=== PATIENT | male | born 1970 ===

== ENCOUNTER 2019-08-23 06:21 | Inpatient (IN) | payer OTHER ==
[2019-08-23] MEDS ORDERED: ALBUTEROL HFA INHALER INHALATION STA (06:43)
[2019-08-23] MEDS ORDERED: ACETAMINOPHEN TAB 500 MG TAB PO STA (06:43)
[2019-08-23] MEDS ORDERED: SODIUM CHLORIDE 0.9% 1,000 ML IV ONE (06:46)
--- NOTE | 2019-08-23 06:48 | ED ---
SOB HPI - General Stated Complaint: SOB Time Seen by Provider: 08/23/19 06:25 Source: RN notes reviewed, old records reviewed - History of Present Illness Initial Comments: Patient is a 48-year-old male, currently in [facility]. Patient speaks only English. He presents today with complaints of 2 weeks of cough shortness of breath and chest pain. He reports the emergency Department with fever 102. Patient is currently residing on the cold floor after he started to have symptoms. Also complains of not eating for the past 8 days and has had episodes of diarrhea and vomiting. Patient reports that he does have a history of thoracic aortic aneurysm. Majority of the history was taken by nurse and with translating service. - Related Data Allergies Allergy/AdvReac Type Severity Reaction Status Date / Time No Known Allergies Allergy Verified 08/23/19 07:47 Review of Systems ROS Statement: Those systems with pertinent positive or pertinent negative responses have been documented in the HPI. ROS Other: All systems not noted in ROS Statement are negative. General Exam - General Exam Comments Initial Comments: 48-year-old male. Diaphoretic. Patient appears in moderate discomfort. His oxygen was 91-90% on room air, placed on 3 L of oxygen. Head exam: Present: atraumatic, normocephalic, normal inspection Eye exam: Present: normal appearance, PERRL, EOMI. Absent: scleral icterus, conjunctival injection, periorbital swelling ENT exam: Present: normal exam Neck exam: Present: normal inspection. Absent: tenderness, meningismus, lymphadenopathy Respiratory exam: Present: decreased breath sounds, other (hypoxia without supllemental oxygen ). Absent: normal lung sounds bilaterally, respiratory distress, wheezes, rales, rhonchi, stridor Cardiovascular Exam: Absent: regular rate GI/Abdominal exam: Present: soft, tenderness (LUQ and RUQ tenderness), normal bowel sounds. Absent: distended, guarding, rebound, rigid Back exam: Present: normal inspection Neurological exam: Present: alert, oriented X3, CN II-XII intact Psychiatric exam: Present: normal affect, normal mood Skin exam: Present: warm, dry, intact, normal color. Absent: rash Course Vital Signs 08/23/19 08/23/19 08/23/19 06:30 06:45 07:15 Temperature 1003 F H 100.3 F H Pulse Rate 107 H 89 Pulse Rate [ 104 H Apical] Respiratory 26 H 20 Rate Blood Pressure 120/82 110/73 O2 Sat by Pulse 91 L 98 Oximetry Medical Decision Making - Medical Decision Making Patient is a 48-year-old male, currently in [facility], presents with 2 weeks of fever shortness of breath diarrhea. He has been on the [facility] that a unit at the [facility] for the past week. Resent today with a worsening fever, worsening shortness of rest, and diaphoresis. Patient did have Tylenol prior to arriving to the emergency department. He still febrile in 100.3 temperature. Patient appeared diaphoretic and generally unwell. Having tachypnea. Patient was placed on oxygen after his oxygen saturations dipped to upper 80s without oxygen on ambulation. Patient was placed on 3 L at this time. He is complaining of some general aches and complains of some right upper quadrant pain as well. At this time patient's labwork was reviewed. He is positive for Covid, d-dimer is negative. LDH is elevated 720. Patient is given albuterol treatment. IV fluids. With Patient requiring supplemental oxygen, in general malaise Artie the Patient at this time. Discussed the case with Dr. Chirinos discussed the case with Dr. Thomas. - Lab Data Result diagrams: 08/23/19 06:54 08/23/19 06:54 Lab Results 08/23/19 08/23/19 08/23/19 Range/Units 06:54 06:54 06:54 WBC 5.8 (3.8-10.6) k/uL RBC 5.15 (4.30-5.90) m/uL Hgb 14.0 (13.0-17.5) gm/dL Hct 42.8 (39.0-53.0) % MCV 83.0 (80.0-100.0) fL MCH 27.2 (25.0-35.0) pg MCHC 32.8 (31.0-37.0) g/dL RDW 12.6 (11.5-15.5) % Plt Count 128 L (150-450) k/uL Neutrophils % 75 % Lymphocytes % 13 % Monocytes % 9 % Eosinophils % 0 % Basophils % 1 % Neutrophils # 4.3 (1.3-7.7) k/uL Lymphocytes # 0.8 L (1.0-4.8) k/uL Monocytes # 0.5 (0-1.0) k/uL Eosinophils # 0.0 (0-0.7) k/uL Basophils # 0.1 (0-0.2) k/uL PT 11.9 (9.0-12.0) sec INR 1.2 H (<1.2) APTT 26.1 (22.0-30.0) sec D-Dimer 0.34 (<0.60) mg/L FEU Sodium 133 L (137-145) mmol/L Potassium 3.7 (3.5-5.1) mmol/L Chloride 99 (98-107) mmol/L Carbon Dioxide 24 (22-30) mmol/L Anion Gap 10 mmol/L BUN 15 (9-20) mg/dL Creatinine 0.87 (0.66-1.25) mg/dL Est GFR (CKD-EPI)AfAm >90 (>60 ml/min/1.73 sqM) Est GFR (CKD-EPI)NonAf >90 (>60 ml/min/1.73 sqM) Glucose 146 H (74-99) mg/dL Plasma Lactic Acid Basim (0.7-2.0) mmol/L Calcium 8.1 L (8.4-10.2) mg/dL Magnesium 1.9 (1.6-2.3) mg/dL Total Bilirubin 0.7 (0.2-1.3) mg/dL AST 36 (17-59) U/L ALT 30 (4-49) U/L Alkaline Phosphatase 44 (38-126) U/L Lactate Dehydrogenase 748 H (313-618) U/L Troponin I (0.000-0.034) ng/mL C-Reactive Protein 79.8 H (<10.0) mg/L Total Protein 6.8 (6.3-8.2) g/dL Albumin 3.8 (3.5-5.0) g/dL Coronavirus (PCR) (Not Detectd) 08/23/19 08/23/19 08/23/19 Range/Units 06:54 06:54 06:54 WBC (3.8-10.6) k/uL RBC (4.30-5.90) m/uL Hgb (13.0-17.5) gm/dL Hct (39.0-53.0) % MCV (80.0-100.0) fL MCH (25.0-35.0) pg MCHC (31.0-37.0) g/dL RDW (11.5-15.5) % Plt Count (150-450) k/uL Neutrophils % % Lymphocytes % % Monocytes % % Eosinophils % % Basophils % % Neutrophils # (1.3-7.7) k/uL Lymphocytes # (1.0-4.8) k/uL Monocytes # (0-1.0) k/uL Eosinophils # (0-0.7) k/uL Basophils # (0-0.2) k/uL PT (9.0-12.0) sec INR (<1.2) APTT (22.0-30.0) sec D-Dimer (<0.60) mg/L FEU Sodium (137-145) mmol/L Potassium (3.5-5.1) mmol/L Chloride (98-107) mmol/L Carbon Dioxide (22-30) mmol/L Anion Gap mmol/L BUN (9-20) mg/dL Creatinine (0.66-1.25) mg/dL Est GFR (CKD-EPI)AfAm (>60 ml/min/1.73 sqM) Est GFR (CKD-EPI)NonAf (>60 ml/min/1.73 sqM) Glucose (74-99) mg/dL Plasma Lactic Acid Basim 1.2 (0.7-2.0) mmol/L Calcium (8.4-10.2) mg/dL Magnesium (1.6-2.3) mg/dL Total Bilirubin (0.2-1.3) mg/dL AST (17-59) U/L ALT (4-49) U/L Alkaline Phosphatase (38-126) U/L Lactate Dehydrogenase (313-618) U/L Troponin I 0.013 (0.000-0.034) ng/mL C-Reactive Protein (<10.0) mg/L Total Protein (6.3-8.2) g/dL Albumin (3.5-5.0) g/dL Coronavirus (PCR) Detected A (Not Detectd) 08/23/19 07:19 EKG performed at 6:48 AM sinus tachycardia, septal infarct age undetermined. Ventricular rate of 104 beats were minute. Verbal 154 ms. She sabianism is 88 ms. QT QTc is 346/454 ms. - Radiology Data Radiology results: report reviewed Patchy bilateral airspace disease. Borderline cardiomegaly. On exclude small bilateral effusion. Disposition Clinical Impression: COVID-19, Hypoxia, English speaking patient, Weakness Disposition: ADMITTED IP TO THIS HOSP Condition: Stable Is patient prescribed a controlled substance at d/c from ED?: No Referrals: None,Stated [Primary Care Provider] - 1-2 days Time of Disposition: 08:44
[2019-08-23] MEDS ORDERED: SODIUM CHLORIDE 0.9% 1,000 ML IV SCH (07:00)
[2019-08-23 07:09] LABS: Basophils # (A) 0.1 k/uL (0-0.2); Basophils % (A) 1 %; Eosinophils % (A) 0 %; HCT 42.8 % (39.0-53.0); Lymphocytes # (A) 0.8 k/uL (1.0-4.8); Lymphocytes % (A) 13 %; MCH 27.2 pg (25.0-35.0); MCHC 32.8 g/dL (31.0-37.0); Mean Platelet Volume 10.2; Monocytes # (A) 0.5 k/uL (0-1.0); Monocytes % (A) 9 %; Neutrophils # (A) 4.3 k/uL (1.3-7.7); Neutrophils % (A) 75 %; Platelet Count 128 k/uL (150-450); RBC 5.15 m/uL (4.30-5.90); RDW 12.6 % (11.5-15.5); WBC 5.8 k/uL (3.8-10.6)
[2019-08-23 07:22] LABS: ALT 30 U/L (4-49); African American GFR (CKD) >90 (>60 ml/min/1.73 sqM); Albumin 3.8 g/dL (3.5-5.0); Anion Gap 10 mmol/L; Blood Urea Nitrogen 15 mg/dL (9-20); C Reactive Protein 79.8 mg/L (<10.0); Calcium 8.1 mg/dL (8.4-10.2); Carbon Dioxide 24 mmol/L (22-30); Chloride 99 mmol/L (98-107); Glucose 146 mg/dL (74-99); Non-African American GFR(CKD) >90 (>60 ml/min/1.73 sqM); Sodium 133 mmol/L (137-145); Total Bilirubin 0.7 mg/dL (0.2-1.3); Total Protein 6.8 g/dL (6.3-8.2)
[2019-08-23 07:23] LABS: D-Dimer 0.34 mg/L FEU (<0.60); INR 1.2 (<1.2)
[2019-08-23 07:24] LABS: Partial Thromboplastin Time 26.1 sec (22.0-30.0); Prothrombin Time 11.9 sec (9.0-12.0)
[2019-08-23 07:33] LABS: AST 36 U/L (17-59); Alkaline Phosphatase 44 U/L (38-126); Magnesium 1.9 mg/dL (1.6-2.3); Potassium 3.7 mmol/L (3.5-5.1)
[2019-08-23 07:34] LABS: LDH 748 U/L (313-618)
--- NOTE | 2019-08-23 07:38 | XR ---
EXAMINATION TYPE: XR chest 1V portable DATE OF EXAM: 08/23/2019 HISTORY: Suspected COVID-19 pneumonia. REFERENCE: NONE. FINDINGS: Heart size upper limits of normal. There is patchy, bilateral airspace disease. Both CP ang les are blunted and I cannot exclude small effusions. IMPRESSION: 1. PATCHY, BILATERAL AIRSPACE DISEASE. 2. BORDERLINE CARDIOMEGALY. 3. I COULD NOT EXCLUDE SMALL, BILATERAL EFFUSIONS.
[2019-08-23] MEDS ORDERED: NALOXONE 0.4 MG/ML 1 ML VIAL IV PRN (08:45)
[2019-08-23] MEDS ORDERED: ONDANSETRON 4 MG/2 ML VIAL IVP PRN (08:45)
[2019-08-23 11:53] LABS: Glucose,Whole Blood 93 mg/dL (75-99)
--- NOTE | 2019-08-23 14:47 | P.HPIM ---
History of Present Illness 48-year-old male, currently in [facility]. Patient speaks only Setswana. He presents today with complaints of 2 weeks of cough shortness of breath and chest pain. He reports the emergency Department with fever 102. Leland gómez is currently residing on the cold floor after he started to have symptoms. Also complains of not eating for the past 8 days and has had episodes of diarrhea and vomiting. Patient reports that he does have a history of thoracic aortic aneurysm. Patient barely speaks Belizean. Patient has hyponatremia high- grade fevers increased LDH, normal d-dimer mild lymphopenia. Patient is covid 19 positive Review of Systems REVIEW OF SYSTEMS: CONSTITUTIONAL: No fever, no malaise, no fatigue. HEENT: No recent visual problems or hearing problems. Denied any sore throat. CARDIOVASCULAR: No chest pain, orthopnea, PND, no palpitations, no syncope. PULMONARY: As mentioned in HPI GASTROINTESTINAL: No diarrhea, no nausea, no vomiting, no abdominal pain. NEUROLOGICAL: No headaches, no weakness, no numbness. HEMATOLOGICAL: Denies any bleeding or petechiae. GENITOURINARY: Denies any burning micturition, frequency, or urgency. MUSCULOSKELETAL/RHEUMATOLOGICAL: Denies any joint pain, swelling, or any muscle pain. ENDOCRINE: Denies any polyuria or polydipsia. The rest of the 14-point review of systems is negative. Past Medical History Past Medical History: Diabetes Mellitus, Liver Disease Additional Past Medical History / Comment(s): aortic aneurysm, History of Any Multi-Drug Resistant Organisms: None Reported Past Surgical History: No Surgical Hx Reported Past Psychological History: Unable to Obtain Smoking Status: Never smoker Past Alcohol Use History: None Reported Past Drug Use History: Cocaine - Past Family History Father Family Medical History: Respiratory Disorder Medications and Allergies Allergies Allergy/AdvReac Type Severity Reaction Status Date / Time No Known Allergies Allergy Verified 08/23/19 07:47 Physical Exam Vitals: Vital Signs Temp Pulse Pulse Pulse Resp BP BP 08/23/19 12:10 08/23/19 09:59 98.1 F 94 14 122/79 08/23/19 09:10 91 20 112/71 08/23/19 08:00 08/23/19 07:15 100.3 F H 89 20 110/73 08/23/19 06:45 104 H 08/23/19 06:30 1003 F H 107 H 26 H 120/82 Pulse Ox 08/23/19 12:10 96 08/23/19 09:59 96 08/23/19 09:10 97 08/23/19 08:00 92 L 08/23/19 07:15 98 08/23/19 06:45 08/23/19 06:30 91 L Intake and Output 08/22/19 08/23/19 08/23/19 22:59 06:59 14:59 Intake Total 240 Balance 240 Intake: Oral 240 Other: Weight 145.15 kg 145.15 kg PHYSICAL EXAMINATION: GENERAL: The patient is alert and oriented x3, not in any acute distress. Well developed, well nourished. HEENT: Pupils are round and equally reacting to light. EOMI. No scleral icterus. No conjunctival pallor. Normocephalic, atraumatic. No pharyngeal erythema. No thyromegaly. CARDIOVASCULAR: S1 and S2 present. No murmurs, rubs, or gallops. PULMONARY: Chest is clear to auscultation, no wheezing or crackles. ABDOMEN: Soft, nontender, nondistended, normoactive bowel sounds. No palpable organomegaly. MUSCULOSKELETAL: No joint swelling or deformity. EXTREMITIES: No cyanosis, clubbing, or pedal edema. NEUROLOGICAL: Gross neurological examination did not reveal any focal deficits. SKIN: No rashes. Note: Because of COVID 19 isolation, some of the history and physical exam findings or indirect and obtained from nursing staff, and other physician examinations to avoid unnecessary contact with the patient. Results CBC & Chem 7: 08/23/19 06:54 08/23/19 06:54 Labs: Abnormal Lab Results - Last 24 Hours (Table) 08/23/19 08/23/19 08/23/19 Range/Units 06:54 06:54 06:54 Plt Count 128 L (150-450) k/uL Lymphocytes # 0.8 L (1.0-4.8) k/uL INR 1.2 H (<1.2) Sodium 133 L (137-145) mmol/L Glucose 146 H (74-99) mg/dL Calcium 8.1 L (8.4-10.2) mg/dL Lactate Dehydrogenase 748 H (313-618) U/L C-Reactive Protein 79.8 H (<10.0) mg/L Coronavirus (PCR) (Not Detectd) 08/23/19 Range/Units 06:54 Plt Count (150-450) k/uL Lymphocytes # (1.0-4.8) k/uL INR (<1.2) Sodium (137-145) mmol/L Glucose (74-99) mg/dL Calcium (8.4-10.2) mg/dL Lactate Dehydrogenase (313-618) U/L C-Reactive Protein (<10.0) mg/L Coronavirus (PCR) Detected A (Not Detectd) Thrombosis Risk Factor Assmnt - Choose All That Apply Any of the Below Risk Factors Present?: Yes Each Factor Represents 1 point: Age 41-60 years, Obesity (BMI >25), Serious lung disease incl. pneumonia (< 1month) Thrombosis Risk Factor Assessment Total Risk Factor Score: 3 Thrombosis Risk Factor Assessment Level: Moderate Risk Assessment and Plan Plan: Acute hypoxic respiratory failure: Seconded to cocaine 19 infection. Patient will be can you done supportive care if needed patient will be started on steroids patient will not be started on any hydroxychloroquine at this time. -Type 2 diabetes mellitus. Sliding scale insulin for now -Obesity
[2019-08-23 17:11] LABS: Glucose,Whole Blood 147 mg/dL (75-99)
[2019-08-23] MEDS: HYDROXYCHLOROQUINE SULFATE 200 MG TAB PO SCH (17:45)
[2019-08-23] MEDS: INSULIN ASPART (NovoLOG) 100 UNIT/ML VIAL SQ SCH ×2 (17:45→22:54)
[2019-08-23] MEDS ORDERED: HYDROXYCHLOROQUINE SULFATE 200 MG TAB PO SCH (21:00)
--- NOTE | 2019-08-23 22:21 | P.CONS ---
History of Present Illness - Reason for Consult Consult date: 08/23/19 COVID19 pneumonia Requesting physician: Raquel Thomas - Chief Complaint Fever and cough x 1 week - History of Present Illness Patient is a 48-year-old male resident of [facility] who speaks only Maltese has been brought to my [facility] this morning with 2 weeks of cough shortness of breath and chest pain patient noticed to have a fever of 102 F apparently the patient has been residing in the [facility] floor after his symptoms started patient not been eating for 8 days and this episode of vomiting and diarrhea with the symptoms so the patient was evaluated by the ER physician patient presentation the hospital did have a fever of 100.3 F pat ient has a normal white count and did have the leukopenia levels have been normal LDH was elevated CRP elevated davis PCR came back positive patient had did have a chest x-ray shows patchy bilateral airspace disease patient was admitted for respite was consulted later for further management of his underlying COVID-19 infection most information has been obtained from review the chart as the patient was unable to provide any history because of language barrier and no saw maker was available. Review of Systems Positive point has been mentioned in HPI complete review could not be obtained because of underlying language barrier Past Medical History Past Medical History: Diabetes Mellitus, Liver Disease Additional Past Medical History / Comment(s): aortic aneurysm, History of Any Multi-Drug Resistant Organisms: None Reported Past Surgical History: No Surgical Hx Reported Past Psychological History: Unable to Obtain Smoking Status: Never smoker Past Alcohol Use History: None Reported Past Drug Use History: Cocaine - Past Family History Father Family Medical History: Respiratory Disorder Medications and Allergies Home Medications Medication Instructions Recorded Confirmed Type Acetaminophen Tab [Tylenol] 975 mg PO BID PRN 08/23/19 08/23/19 History Aspirin EC [Ecotrin Low Dose] 81 mg PO DAILY 08/23/19 08/23/19 History Atorvastatin [Lipitor] 20 mg PO HS 08/23/19 08/23/19 History Ensure 240 ml PO BID 08/23/19 08/23/19 History Insulin Regular [HumuLIN R] See Protocol SQ ACHS 08/23/19 08/23/19 History Lisinopril [Zestril] 10 mg PO DAILY 08/23/19 08/23/19 History Omeprazole [PriLOSEC] 20 mg PO DAILY PRN 08/23/19 08/23/19 History Ondansetron [Zofran] 4 mg PO BID PRN 08/23/19 08/23/19 History glipiZIDE [Glucotrol] 5 mg PO DAILY 08/23/19 08/23/19 History metFORMIN HCL 1,000 mg PO BID 08/23/19 08/23/19 History Allergies Allergy/AdvReac Type Severity Reaction Status Date / Time No Known Allergies Allergy Verified 08/23/19 15:46 Physical Exam Vitals: Vital Signs Temp Pulse Pulse Pulse Resp BP BP 08/23/19 15:57 99.6 F 101 H 22 116/74 08/23/19 12:10 08/23/19 09:59 98.1 F 94 14 122/79 08/23/19 09:10 91 20 112/71 08/23/19 08:00 08/23/19 07:15 100.3 F H 89 20 110/73 08/23/19 06:45 104 H 08/23/19 06:30 1003 F H 107 H 26 H 120/82 Pulse Ox 08/23/19 15:57 95 08/23/19 12:10 96 08/23/19 09:59 96 08/23/19 09:10 97 08/23/19 08:00 92 L 08/23/19 07:15 98 08/23/19 06:45 08/23/19 06:30 91 L Intake and Output 08/23/19 08/23/19 08/23/19 06:59 14:59 22:59 Intake Total 240 480 Balance 240 480 Intake: Oral 240 480 Other: # Voids 0 Weight 145.15 kg 145.15 kg GENERAL DESCRIPTION: Middle-aged male lying in bed, no distress. No tachypnea or accessory muscle of respiration use. HEENT: Shows Pallor , no scleral icterus. Oral mucous membrane is dry. NECK: Trachea central, no thyromegaly. LUNGS: Unlabored breathing. Coarse breath sound at the base. No wheeze or crackle. HEART: S1, S2, regular rate and rhythm. ABDOMEN: Soft, no tenderness , guarding or rigidity EXTREMITIES: No edema of feet. SKIN: No rash, no masses palpable. NEUROLOGICAL: The patient is awake, alert, orientation could not be determined because of language barrier Results CBC & Chem 7: 08/23/19 06:54 08/23/19 06:54 Labs: Abnormal Lab Results - Last 24 Hours (Table) 08/23/19 08/23/19 08/23/19 Range/Units 06:54 06:54 06:54 Plt Count 128 L (150-450) k/uL Lymphocytes # 0.8 L (1.0-4.8) k/uL INR 1.2 H (<1.2) Sodium 133 L (137-145) mmol/L Glucose 146 H (74-99) mg/dL POC Glucose (mg/dL) (75-99) mg/dL Calcium 8.1 L (8.4-10.2) mg/dL Lactate Dehydrogenase 748 H (313-618) U/L C-Reactive Protein 79.8 H (<10.0) mg/L Coronavirus (PCR) (Not Detectd) 08/23/19 08/23/19 Range/Units 06:54 17:09 Plt Count (150-450) k/uL Lymphocytes # (1.0-4.8) k/uL INR (<1.2) Sodium (137-145) mmol/L Glucose (74-99) mg/dL POC Glucose (mg/dL) 147 H (75-99) mg/dL Calcium (8.4-10.2) mg/dL Lactate Dehydrogenase (313-618) U/L C-Reactive Protein (<10.0) mg/L Coronavirus (PCR) Detected A (Not Detectd) Assessment and Plan Assessment: patient presented to hospital with fever congested cough and this patient who is currently incarcerated at [facility] and possibly exposed to other elements with the COVID-19 in this patient who did have typical findings of a COVID-19 infection with lymphopenia elevated LDH bilateral interstitial infiltrate (1) Pneumonia due to COVID-19 virus Current Visit: Yes Status: Acute Code(s): U07.1 - COVID-19; J12.89 - OTHER VIRAL PNEUMONIA SNOMED Code(s): 221450600 Plan: 1 we will start the patient on Plaquenil-400 mg twice daily x2 doses followed by 200 g twice daily x8 doses 2- Patient restarted on steroids 1 mg/kg as the patient is hypoxic requiring supplemental oxygen 3-started on Lovenox to prevent any thrombotic complication, with COVID-19 infection 4-oral zinc and vitamin C We will follow on clinical condition and cultures to further adjust medication if needed Thank you for this consultation we will follow the patient along with you Time with Patient: Greater than 30
[2019-08-23 22:43] LABS: Glucose,Whole Blood 139 mg/dL (75-99)
[2019-08-23] MEDS: ENOXAPARIN 40 MG/0.4 ML SYRINGE SQ SCH (22:54)
[2019-08-23] MEDS: ACETAMINOPHEN TAB 325 MG TAB PO PRN (22:55)
[2019-08-23] MEDS: predniSONE 20 MG TAB PO SCH (22:55)
[2019-08-24 06:59] LABS: Glucose,Whole Blood 248 mg/dL (75-99)
[2019-08-24] MEDS: predniSONE 20 MG TAB PO SCH ×2 (07:31→22:05)
[2019-08-24] MEDS: HYDROXYCHLOROQUINE SULFATE 200 MG TAB PO SCH ×2 (07:31→22:04)
[2019-08-24] MEDS: ENOXAPARIN 40 MG/0.4 ML SYRINGE SQ SCH ×2 (07:31→22:04)
[2019-08-24] MEDS: INSULIN ASPART (NovoLOG) 100 UNIT/ML VIAL SQ SCH ×4 (07:32→22:05)
[2019-08-24 11:19] LABS: Ferritin 1114.5 ng/mL (22.0-322.0)
[2019-08-24 11:30] LABS: Glucose,Whole Blood 249 mg/dL (75-99)
--- NOTE | 2019-08-24 11:51 | P.PN ---
Subjective 48-year-old male, currently in [facility]. Patient speaks only Swiss. He presents today with complaints of 2 weeks of cough shortness of breath and chest pain. He reports the emergency Department with fever 102. Patient is currently residing on the cold floor after he started to have symptoms. Also complains of not eating for the past 8 days and has had episodes of diarrhea and vomiting. Patient reports that he does have a history of thoracic aortic aneurysm. Patient barely speaks Icelandic. Patient has hyponatremia high-grade fevers increased LDH, normal d-dimer mild lymphopenia. Patient is covid 19 positive. 08/24/2019 Patient is clinically stable but stick rate requiring 4 L of falls and today compared to 3 L yesterday because of which the patient it to be monitored until we wean off the oxygen. Constitutional: Denied any fatigue denied any fever. Cardio vascular: denied any chest pain, palpitations Gastrointestinal denied any nausea vomiting Pulmonary: Denied any shortness of breath cough Neurologic denied any new focal deficits All inpatient medications were reviewed and appropriate changes in these me dications as dictated in the interval history and assessment and plan. Objective - Vital Signs Vital signs: Vital Signs Temp 97.2 F L 08/24/19 11:19 Pulse 78 08/24/19 11:19 Resp 19 08/24/19 11:19 BP 137/82 08/24/19 11:19 Pulse Ox 92 L 08/24/19 11:19 Intake & Output 08/23/19 08/24/19 08/24/19 18:59 06:59 18:59 Intake Total 240 2580 Output Total 1500 Balance 240 1080 Weight 145.15 kg Intake: Oral 240 2580 Output: Urine 1500 Other: # Voids 0 2 - Exam PHYSICAL EXAMINATION: GENERAL: The patient is alert and oriented x3, not in any acute distress. Well developed, well nourished. HEENT: Pupils are round and equally reacting to light. EOMI. No scleral icterus. No conjunctival pallor. Normocephalic, atraumatic. No pharyngeal erythema. No thyromegaly. CARDIOVASCULAR: S1 and S2 present. No murmurs, rubs, or gallops. PULMONARY: Chest is clear to auscultation, no wheezing or crackles. ABDOMEN: Soft, nontender, nondistended, normoactive bowel sounds. No palpable organomegaly. MUSCULOSKELETAL: No joint swelling or deformity. EXTREMITIES: No cyanosis, clubbing, or pedal edema. NEUROLOGICAL: Gross neurological examination did not reveal any focal deficits. SKIN: No rashes. Note: Because of COVID 19 isolation, some of the history and physical exam findings or indirect and obtained from nursing staff, and other physician examinations to avoid unnecessary contact with the patient. - Labs CBC & Chem 7: 08/23/19 06:54 08/23/19 06:54 Labs: Abnormal Lab Results - Last 24 Hours (Table) 08/23/19 08/23/19 08/23/19 Range/Units 06:54 17:09 22:39 POC Glucose (mg/dL) 147 H 139 H (75-99) mg/dL Ferritin 1114.5 H (22.0-322.0) ng/mL 08/24/19 08/24/19 Range/Units 06:58 11:29 POC Glucose (mg/dL) 248 H 249 H (75-99) mg/dL Ferritin (22.0-322.0) ng/mL Microbiology - Last 24 Hours (Table) 08/23/19 06:54 Blood Culture - Preliminary Blood No Growth after 24 hours Assessment and Plan Plan: Acute hypoxic respiratory failure: Seconded to Covid 19 infection. Patient will be can you done supportive care if needed patient will be started on steroids patient will not be started on any hydroxychloroquine at this time. Patient's [place] requirements have gone up. -Type 2 diabetes mellitus. Sliding scale insulin for now -Hypervolemic hyponatremia continue with IV fluids -Hypertension: Patient was on lisinopril at home holding of that medication to avoid any hypotension related to sepsis -Obesity
[2019-08-24] MEDS: SODIUM CHLORIDE 0.9% 1,000 ML IV SCH ×2 (12:19→22:05)
--- NOTE | 2019-08-24 15:01 | P.CNPUL ---
History of Present Illness Consult date: 08/24/19 Requesting physician: Raquel Thomas Reason for consult: dyspnea, hypoxemia, pneumonia Chief complaint: Coronavirus infection History of present illness: 48-year-old male from [facility], with previous medical history of hypertension, hyperlipidemia, diabetes mellitus type 2, history of aortic aneurysm, GERD/reflux, who was brought in from [facility] on 08/23/2019 after complaints of not feeling well for 2 weeks with symptoms of fever, cough, shortness of breath and chest pain. Patient was also complaining of vomiting for 2 days prior, diaphoresis. Patient does not speak very much Pashto, and certified finishing supervisor plastic sheets services were used while interviewing the patient. Also chart was reviewed and history was also obtained from the chart. Chest x-ray showed patchy bilateral airspace disease, borderline cardiomegaly and small bilateral pleural effusions could not be excluded. On presentation his fever was 100.3F. Pulse ox was 91% on room air, patient was placed on supplemental oxygen he is currently on 4 L per nasal cannula with a pulse ox of 94%, he is tachypneic, and appears to be short of breath at rest. Lab work showed a white blood cell count 5.8, hemoglobin of 14.0, lymphopenia with the lymphocyte count of 0.8, INR is 1.2, d-dimer was 0.34, serum sodium was 133, the rest of electrolytes and renal profile were within normal limits, serum glucose was 139, plasma lactic acid was 1.2, ferritin was 1114, LDH was 748, troponin was 0.013, CRP was 79.8, pro calcitonin was 0.24, coronavirus PCR was positive, patient was started on Plaquenil, oral prednisone, he was given gentle IV hydration with a total of 1 L and IV fluid bolus and right now he has maintenance IVs infusing at a rate of 100 ML per hour. Review of Systems All systems: negative Constitutional: Denies chills, Denies fever Eyes: denies blurred vision, denies pain Ears, nose, mouth and throat: Denies headache, Denies sore throat Cardiovascular: Reports chest pain, Denies shortness of breath Respiratory: Reports dyspnea, Denies cough Gastrointestinal: Reports nausea, Reports vomiting, Denies abdominal pain, Denies diarrhea Musculoskeletal: Denies myalgias Integumentary: Denies pruritus, Denies rash Neurological: Denies numbness, Denies weakness Psychiatric: Denies anxiety, Denies depression Endocrine: Denies fatigue, Denies weight change Past Medical History Past Medical History: Diabetes Mellitus, Hyperlipidemia, Hypertension, Liver Disease Additional Past Medical History / Comment(s): aortic aneurysm, History of Any Multi-Drug Resistant Organisms: None Reported Past Surgical History: No Surgical Hx Reported Past Psychological History: Unable to Obtain Smoking Status: Never smoker Past Alcohol Use History: None Reported Past Drug Use History: Cocaine - Past Family History Father Family Medical History: Respiratory Disorder Medications and Allergies Home Medications Medication Instructions Recorded Confirmed Type Acetaminophen Tab [Tylenol] 975 mg PO BID PRN 08/23/19 08/23/19 History Aspirin EC [Ecotrin Low Dose] 81 mg PO DAILY 08/23/19 08/23/19 History Atorvastatin [Lipitor] 20 mg PO HS 08/23/19 08/23/19 History Ensure 240 ml PO BID 08/23/19 08/23/19 History Insulin Regular [HumuLIN R] See Protocol SQ ACHS 08/23/19 08/23/19 History Lisinopril [Zestril] 10 mg PO DAILY 08/23/19 08/23/19 History Omeprazole [PriLOSEC] 20 mg PO DAILY PRN 08/23/19 08/23/19 History Ondansetron [Zofran] 4 mg PO BID PRN 08/23/19 08/23/19 History glipiZIDE [Glucotrol] 5 mg PO DAILY 08/23/19 08/23/19 History metFORMIN HCL 1,000 mg PO BID 08/23/19 08/23/19 History Allergies Allergy/AdvReac Type Severity Reaction Status Date / Time No Known Allergies Allergy Verified 08/23/19 15:46 Physical Exam Vitals: Vital Signs Temp Pulse Resp BP Pulse Ox 08/24/19 14:37 97.4 F L 80 18 138/82 94 L 08/24/19 11:19 97.2 F L 78 19 137/82 92 L 08/24/19 07:30 26 H 08/24/19 07:00 97.2 F L 80 26 H 126/80 95 08/24/19 03:02 97.2 F L 83 20 135/82 92 L 08/23/19 23:00 99.1 F 86 20 144/76 96 08/23/19 20:35 98.4 F 98 20 154/75 95 08/23/19 15:57 99.6 F 101 H 22 116/74 95 Intake and Output 08/23/19 08/24/19 08/24/19 22:59 06:59 14:59 Intake Total 2380 200 560 Output Total 1000 500 Balance 1380 -300 560 Intake: Oral 2380 200 560 Output: Urine 1000 500 Other: # Voids 2 2 2 GENERAL EXAM: Alert, pleasant, 48-year-old obese male in [facility], shackled to the bed currently on 4 L of oxygen and the pulse ox of 92% comfortable in no apparent distress. Patient is mildly short of breath at rest , tachypneic HEAD: Normocephalic/atraumatic. EYES: Normal reaction of pupils, equal size. Conjunctiva pink, sclera white. NOSE: Clear with pink turbinates. THROAT: No erythema or exudates. NECK: No masses, no JVD, no thyroid enlargement, no adenopathy. CHEST: No chest wall deformity. Symmetrical expansion. LUNGS: Equal air entry with no crackles, wheeze, rhonchi or dullness. CVS: Regular rate and rhythm, normal S1 and S2, no gallops, no murmurs, no rubs ABDOMEN: Soft, nontender. No hepatosplenomegaly, normal bowel sounds, no guarding or rigidity. EXTREMITIES: No clubbing, no edema, no cyanosis, 2+ pulses and upper and lower extremities. MUSCULOSKELETAL: Muscle strength and tone normal. SPINE: No scoliosis or deformity SKIN: No rashes CENTRAL NERVOUS SYSTEM: Alert and oriented -3. No focal deficits, tone is normal in all 4 extremities. PSYCHIATRIC: Alert and oriented -3. Appropriate affect. Intact judgment and insight. Results - Laboratory Findings CBC and BMP: 08/23/19 06:54 08/23/19 06:54 PT/INR, D-dimer PT 11.9 sec (9.0-12.0) 08/23/19 06:54 INR 1.2 (<1.2) H 08/23/19 06:54 D-Dimer 0.34 mg/L FEU (<0.60) 08/23/19 06:54 Abnormal lab findings: Abnormal Labs 08/23/19 08/23/19 08/23/19 06:54 06:54 06:54 Plt Count 128 L Lymphocytes # 0.8 L INR 1.2 H Sodium 133 L Glucose 146 H POC Glucose (mg/dL) Calcium 8.1 L Ferritin 1114.5 H Lactate Dehydrogenase 748 H C-Reactive Protein 79.8 H Procalcitonin Coronavirus (PCR) 08/23/19 08/23/19 08/23/19 06:54 06:54 17:09 Plt Count Lymphocytes # INR Sodium Glucose POC Glucose (mg/dL) 147 H Calcium Ferritin Lactate Dehydrogenase C-Reactive Protein Procalcitonin 0.24 H Coronavirus (PCR) Detected A 08/23/19 08/24/19 08/24/19 22:39 06:58 11:29 Plt Count Lymphocytes # INR Sodium Glucose POC Glucose (mg/dL) 139 H 248 H 249 H Calcium Ferritin Lactate Dehydrogenase C-Reactive Protein Procalcitonin Coronavirus (PCR) - Diagnostic Findings Chest x-ray: report reviewed, image reviewed Assessment and Plan Plan: Assessment: #1. Acute hypoxic respiratory failure related to acute COVID-19 pneumonitis #2. Weakness, shortness of breath, nausea, vomiting, fever related to the above #3. Elevated ferritin, LDH and CRP related to acute COVID 19 infection #4. Bilateral infiltrates related to acute COVID 19 pneumonitis #5. Hypertension #6. Hyperlipidemia #7. History of aortic aneurysm #8. GERD/reflux #9. Diabetes mellitus type 2 Plan: Continue current medical treatment, continue IV steroids will decrease the dose down to 40 mg twice daily. Patient has been started on Plaquenil, chest x-ray has been reviewed showing bilateral infiltrates. Currently afebrile, no further episodes of vomiting. Follow blood work in the morning including d-dimer, LDH ferritin and CRP. We'll continue to follow clinical course and monitor for signs of worsening hypoxemia and increasing dyspnea. I performed a history & physical examination of the patient and discussed their management with my nurse practitioner, Liliana Rios. I reviewed the nurse practitioner's note and agree with the documented findings and plan of care. Lung sounds are positive for diminished breath sounds. The findings and the impression was discussed with the patient. I attest to the documentation by the nurse practitioner. Time with Patient: Greater than 30
[2019-08-24 16:58] LABS: Glucose,Whole Blood 268 mg/dL (75-99)
--- NOTE | 2019-08-24 19:26 | PN ---
PROGRESS NOTE DATE OF SERVICE: 08/24/2019 REASON FOR FOLLOWUP: Acute COVID-19 pneumonia. INTERVAL HISTORY: The patient is currently afebrile. The patient is breathing comfortably. Unfortunately he is unable to provide any history because of the language barrier, but he did mention doing good. FiO2 is currently at 4 L. No other changes reported by the nursing staff. PHYSICAL EXAMINATION: Blood pressure 138/82 with a pulse of 80, temperature 97.4. He is 94% on 4 L nasal cannula. General description is a middle-aged male lying in bed in no distress. RESPIRATORY SYSTEM: Unlabored breathing. Clear to auscultation anteriorly. HEART: S1, S2. Regular rate and rhythm. ABDOMEN: Soft. No tenderness. LABS: No new labs have been obtained today. DIAGNOSTIC IMPRESSION AND PLAN: Patient with acute COVID-19 pneumonia, for which the patient is continued on the Plaquenil, prednisone, Lovenox and supplemental oxygen. Monitor clinical course closely. MMGABEL / IJN: [id number] /
[2019-08-24 20:37] LABS: Glucose,Whole Blood 255 mg/dL (75-99)
[2019-08-24] MEDS: ACETAMINOPHEN TAB 325 MG TAB PO PRN (22:12)
[2019-08-25 06:38] LABS: HCT 43.8 % (39.0-53.0); HGB 14.1 gm/dL (13.0-17.5); MCH 27.4 pg (25.0-35.0); MCHC 32.3 g/dL (31.0-37.0); MCV 85.1 fL (80.0-100.0); Mean Platelet Volume 10.1; Platelet Count 141 k/uL (150-450); RBC 5.14 m/uL (4.30-5.90); RDW 12.6 % (11.5-15.5); WBC 5.3 k/uL (3.8-10.6)
[2019-08-25 06:47] LABS: ALT 36 U/L (4-49); AST 35 U/L (17-59); African American GFR (CKD) >90 (>60 ml/min/1.73 sqM); Albumin 3.3 g/dL (3.5-5.0); Alkaline Phosphatase 53 U/L (38-126); Anion Gap 9 mmol/L; Blood Urea Nitrogen 10 mg/dL (9-20); C Reactive Protein 57.7 mg/L (<10.0); Calcium 8.4 mg/dL (8.4-10.2); Carbon Dioxide 25 mmol/L (22-30); Chloride 105 mmol/L (98-107); Glucose 267 mg/dL (74-99); Magnesium 2.1 mg/dL (1.6-2.3); Non-African American GFR(CKD) >90 (>60 ml/min/1.73 sqM); Potassium 4.4 mmol/L (3.5-5.1); Sodium 139 mmol/L (137-145); Total Bilirubin 0.4 mg/dL (0.2-1.3); Total Protein 6.4 g/dL (6.3-8.2)
[2019-08-25 07:05] LABS: Glucose,Whole Blood 234 mg/dL (75-99)
--- NOTE | 2019-08-25 07:36 | XR ---
EXAMINATION TYPE: XR chest 1V portable DATE OF EXAM: 08/25/2019 HISTORY: Shortness of breath. COMPARISON: 08/23/2019 TECHNIQUE: Single view of the chest is submitted. FINDINGS: Demonstrated are scattered senescent parenchymal change. Stable scattered airspace disease right greater than left. The heart is stable. Hilar and mediastinal structures are within normal limits. Degenerative changes are seen of the dorsal spine. IMPRESSION: 1. Stable scattered airspace disease right greater than left.
[2019-08-25] MEDS: INSULIN ASPART (NovoLOG) 100 UNIT/ML VIAL SQ SCH ×4 (07:52→21:24)
[2019-08-25] MEDS: HYDROXYCHLOROQUINE SULFATE 200 MG TAB PO SCH ×2 (07:52→21:24)
[2019-08-25] MEDS: ENOXAPARIN 40 MG/0.4 ML SYRINGE SQ SCH ×2 (07:52→21:23)
[2019-08-25] MEDS: predniSONE 20 MG TAB PO SCH ×2 (07:53→21:25)
[2019-08-25 11:29] LABS: Glucose,Whole Blood 300 mg/dL (75-99)
[2019-08-25] MEDS ORDERED: guaiFENesin-DM 100-10MG/5ML 10 ML CUP PO PRN (11:30)
[2019-08-25 11:43] LABS: Ferritin 1057.2 ng/mL (22.0-322.0)
[2019-08-25] MEDS: SODIUM CHLORIDE 0.9% 1,000 ML IV SCH (11:43)
--- NOTE | 2019-08-25 12:01 | P.PN ---
Subjective Progress Note Date: 08/25/19 Principal diagnosis: Acute hypoxic respiratory failure secondary to acute CoVID 19 pneumonitis 48-year-old male from [facility], with previous medical history of hypertension, hyperlipidemia, diabetes mellitus type 2, history of aortic aneurysm, GERD/reflux, who was brought in from [facility] on 08/23/2019 after complaints of not feeling well for 2 weeks with symptoms of fever, cough, shortness of breath and chest pain. Patient was also complaining of vomiting for 2 days prior, diaphoresis. Patient does not speak very much Kyrgyz, and certified corporate relations director services were used while interviewing the patient. Also chart was reviewed and history was also obtained from the chart. Chest x-ray showed patchy bilateral airspace disease, borderline cardiomegaly and small bilateral pleural effusions could not be excluded. On presentation his fever was 100.3F. Pulse ox was 91% on room air, patient was placed on supplemental oxygen he is currently on 4 L per nasal cannula with a pulse ox of 94%, he is tachypneic, and appears to be short of breath at rest. Lab work showed a white blood cell count 5.8, hemoglobin of 14.0, lymphopenia with the lymphocyte count of 0.8, INR is 1.2, d-dimer was 0.34, serum sodium was 133, the rest of electrolytes and renal profile were within normal limits, serum glucose was 139, plasma lactic acid was 1.2, ferritin was 1114, LDH was 748, troponin was 0.013, CRP was 79.8, pro calcitonin was 0.24, coronavirus PCR was positive, patient was started on Plaquenil, oral prednisone, he was given gentle IV hydration with a total of 1 L and IV fluid bolus and right now he has maintenance IVs infusing at a rate of 100 ML per hour. The patient is seen today 08/25/2019 in follow-up on the regular medical floor. He is currently awake and alert in no acute distress. He is maintaining O2 saturations in the 90s on 5 L/m per nasal cannula. He's been afebrile. Hemodynamically stable. He is dyspneic on exertion. Chest x-ray continues to show scattered airspace disease right greater than left. Blood cultures reveal no growth to date. White count 5.3. Hemoglobin 14.1. D-dimer 0.21. Sodium 139. Potassium 4.4. Creatinine 0.43. Glucose 267. Ferritin 1057. C-reactive protein 57.7. Peripheral calcitonin 0.11. He is continued on Plaquenil, prednisone, Lovenox. Objective - Vital Signs Vital signs: Vital Signs Temp 97.6 F 08/25/19 11:00 Pulse 75 08/25/19 11:00 Resp 17 08/25/19 11:00 BP 145/88 08/25/19 11:00 Pulse Ox 94 L 08/25/19 11:00 Intake & Output 08/24/19 08/25/19 08/25/19 18:59 06:59 18:59 Intake Total 560 500 350 Balance 560 500 350 Intake: Oral 560 500 350 Other: # Voids 2 3 - Exam GENERAL EXAM: Alert, pleasant, 48-year-old obese male in [facility], shackled to the bed currently on 5 L of oxygen and the pulse ox of 94% comfortable in no apparent distress. Patient is mildly short of breath at rest, tachypneic HEAD: Normocephalic/atraumatic. EYES: Normal reaction of pupils, equal size. Conjunctiva pink, sclera white. NOSE: Clear with pink turbinates. THROAT: No erythema or exudates. NECK: No masses, no JVD, no thyroid enlargement, no adenopathy. CHEST: No chest wall deformity. Symmetrical expansion. LUNGS: Equal air entry with bilateral scattered rhonchi. CVS: Regular rate and rhythm, normal S1 and S2, no gallops, no murmurs, no rubs ABDOMEN: Soft, nontender. No hepatosplenomegaly, normal bowel sounds, no guarding or rigidity. EXTREMITIES: No clubbing, no edema, no cyanosis, 2+ pulses and upper and lower extremities. MUSCULOSKELETAL: Muscle strength and tone normal. SPINE: No scoliosis or deformity SKIN: No rashes CENTRAL NERVOUS SYSTEM: No focal deficits, tone is normal in all 4 extremities. PSYCHIATRIC: Alert and oriented -3. Appropriate affect. Intact judgment and insight. - Labs CBC & Chem 7: 08/25/19 06:04 08/25/19 06:04 Labs: Abnormal Lab Results - Last 24 Hours (Table) 08/23/19 08/24/19 08/24/19 Range/Units 06:54 16:46 20:36 Plt Count (150-450) k/uL Creatinine (0.66-1.25) mg/dL Glucose (74-99) mg/dL POC Glucose (mg/dL) 268 H 255 H (75-99) mg/dL Ferritin (22.0-322.0) ng/mL C-Reactive Protein (<10.0) mg/L Albumin (3.5-5.0) g/dL Procalcitonin 0.24 H (0.02-0.09) ng/mL 08/25/19 08/25/19 08/25/19 Range/Units 06:04 06:04 06:04 Plt Count 141 L (150-450) k/uL Creatinine 0.43 L (0.66-1.25) mg/dL Glucose 267 H (74-99) mg/dL POC Glucose (mg/dL) (75-99) mg/dL Ferritin 1057.2 H (22.0-322.0) ng/mL C-Reactive Protein 57.7 H (<10.0) mg/L Albumin 3.3 L (3.5-5.0) g/dL Procalcitonin 0.11 H (0.02-0.09) ng/mL 08/25/19 08/25/19 Range/Units 06:59 11:26 Plt Count (150-450) k/uL Creatinine (0.66-1.25) mg/dL Glucose (74-99) mg/dL POC Glucose (mg/dL) 234 H 300 H (75-99) mg/dL Ferritin (22.0-322.0) ng/mL C-Reactive Protein (<10.0) mg/L Albumin (3.5-5.0) g/dL Procalcitonin (0.02-0.09) ng/mL Microbiology - Last 24 Hours (Table) 08/23/19 06:54 Blood Culture - Preliminary Blood No Growth after 48 hours Assessment and Plan Assessment: #1. Acute hypoxic respiratory failure secondary to acute COVID-19 pneumonitis #2. Weakness, shortness of breath, nausea, vomiting, fever related to the above #3. Elevated ferritin, LDH and CRP related to acute COVID 19 infection #4. Bilateral infiltrates related to acute COVID 19 pneumonitis #5. Hypertension #6. Hyperlipidemia #7. History of aortic aneurysm #8. GERD/reflux #9. Diabetes mellitus type 2 Plan: The patient was seen and evaluated by Dr. Do Chest x-ray and labs reviewed Continue the current treatment plan Titrate down the FiO2 as tolerated We will continue to follow and make further recommendations based on his clinical status I, the cosigning physician, performed a history & physical examination of the patient. Lungs sounds with few scattered rhonchi. Maintaining good O2 saturations in the 90s on 5 L/m per nasal cannula. I discussed the assessment and plan of care with my nurse practitioner, Abby Baorne. I attest to the above note as dictated by her.
--- NOTE | 2019-08-25 12:36 | P.PN ---
Subjective 48-year-old male, currently in [facility]. Patient speaks only Armenian. He presents today with complaints of 2 weeks of cough shortness of breath and chest pain. He reports the emergency Department with fever 102. Patient is currently residing on the cold floor after he started to have symptoms. Also complains of not eating for the past 8 days and has had episodes of diarrhea and vomiting. Patient reports that he does have a history of thoracic aortic aneurysm. Patient barely speaks American. Patient has hyponatremia high-grade fevers increased LDH, normal d-dimer mild lymphopenia. Patient is covid 19 positive. 08/24/2019 Patient is clinically stable but stick rate requiring 4 L of falls and today compared to 3 L yesterday because of which the patient it to be monitored until we wean off the oxygen. 08/25/2019 Patient still remains on 4 L of vodka and saturating only 91% chest x-ray showing a bilateral pneumonia 6 consistent with Covid 19 infection Constitutional: Denied any fatigue denied any fever. Cardio vascular: denied any chest pain, palpitations Gastrointestinal denied any nausea vomiting Pulmonary: Denied any shortness of breath cough Neurologic denied any new focal deficits All inpatient medications were reviewed and appropriate changes in these medications as dictated in the interval history and assessment and plan. Objective - Vital Signs Vital signs: Vital Signs Temp 97.6 F 08/25/19 11:00 Pulse 75 08/25/19 11:00 Resp 17 08/25/19 11:00 BP 145/88 08/25/19 11:00 Pulse Ox 94 L 08/25/19 11:00 Intake & Output 08/24/19 08/25/19 08/25/19 18:59 06:59 18:59 Intake Total 560 500 350 Output Total 700 Balance 560 500 -350 Intake: Oral 560 500 350 Output: Urine 700 Other: # Voids 2 3 - Exam PHYSICAL EXAMINATION: GENERAL: The patient is alert and oriented x3, not in any acute distress. Well developed, well nourished. HEENT: Pupils are round and equally reacting to light. EOMI. No scleral icterus. No conjunctival pallor. Normocephalic, atraumatic. No pharyngeal erythema. No thyromegaly. CARDIOVASCULAR: S1 and S2 present. No murmurs, rubs, or gallops. PULMONARY: Chest is clear to auscultation, no wheezing or crackles. ABDOMEN: Soft, nontender, nondistended, normoactive bowel sounds. No palpable organomegaly. MUSCULOSKELETAL: No joint swelling or deformity. EXTREMITIES: No cyanosis, clubbing, or pedal edema. NEUROLOGICAL: Gross neurological examination did not reveal any focal deficits. SKIN: No rashes. Note: Because of COVID 19 isolation, some of the history and physical exam findings or indirect and obtained from nursing staff, and other physician examinations to avoid unnecessary contact with the patient. - Labs CBC & Chem 7: 08/25/19 06:04 08/25/19 06:04 Labs: Abnormal Lab Results - Last 24 Hours (Table) 08/24/19 08/24/19 08/25/19 Range/Units 16:46 20:36 06:04 Plt Count (150-450) k/uL Creatinine 0.43 L (0.66-1.25) mg/dL Glucose 267 H (74-99) mg/dL POC Glucose (mg/dL) 268 H 255 H (75-99) mg/dL Ferritin 1057.2 H (22.0-322.0) ng/mL C-Reactive Protein 57.7 H (<10.0) mg/L Albumin 3.3 L (3.5-5.0) g/dL Procalcitonin (0.02-0.09) ng/mL 08/25/19 08/25/19 08/25/19 Range/Units 06:04 06:04 06:59 Plt Count 141 L (150-450) k/uL Creatinine (0.66-1.25) mg/dL Glucose (74-99) mg/dL POC Glucose (mg/dL) 234 H (75-99) mg/dL Ferritin (22.0-322.0) ng/mL C-Reactive Protein (<10.0) mg/L Albumin (3.5-5.0) g/dL Procalcitonin 0.11 H (0.02-0.09) ng/mL 08/25/19 Range/Units 11:26 Plt Count (150-450) k/uL Creatinine (0.66-1.25) mg/dL Glucose (74-99) mg/dL POC Glucose (mg/dL) 300 H (75-99) mg/dL Ferritin (22.0-322.0) ng/mL C-Reactive Protein (<10.0) mg/L Albumin (3.5-5.0) g/dL Procalcitonin (0.02-0.09) ng/mL Microbiology - Last 24 Hours (Table) 08/23/19 06:54 Blood Culture - Preliminary Blood No Growth after 48 hours Assessment and Plan Plan: Acute hypoxic respiratory failure: Seconded to Covid 19 infection. Patient will be can you done supportive care if needed patient will be started on steroids patient will not be started on any hydroxychloroquine at this time. Patient's O2 requirements remains the same as yesterday -Type 2 diabetes mellitus. Sliding scale insulin for now -Hypovolemic hyponatremia continue with IV fluids, hypervolemic hyponatremia resolved IV fluids were discontinued -Hypertension: Patient was on lisinopril at home holding of that medication to avoid any hypotension related to sepsis -Obesity
[2019-08-25] MEDS: ACETAMINOPHEN TAB 325 MG TAB PO PRN (14:07)
[2019-08-25 16:44] LABS: Glucose,Whole Blood 316 mg/dL (75-99)
--- NOTE | 2019-08-25 17:38 | PN ---
PROGRESS NOTE DATE OF SERVICE: 08/25/2019 REASON FOR FOLLOWUP: Covid 19 pneumonia. INTERVAL HISTORY: The patient is currently afebrile. Patient seems to be breathing comfortably though the RN mentioned he was more coughing this morning and did bring up some sputum, some blood tinge. No nausea or diarrhea has been reported. PHYSICAL EXAMINATION: Blood pressure 147/86, pulse of 75. Temperature is 97.7. He is 96% on 4 L nasal cannula. General description is a middle-aged male lying in bed in no distress. Respiratory system: Unlabored breathing. Clear to auscultation anteriorly. Heart S1, S2. Regular rate and rhythm. ABDOMEN: Soft, no tenderness. LABS: Hemoglobin is 14, white count 5.3. Creatinine 0.43, elevated at 0.11. DIAGNOSTIC IMPRESSION AND PLAN: Patient with acute COVID-19 pneumonia in the patient now having a cough and bringing up some yellow sputum. We will check sputum cultures, empirically add Rocephin and will monitor clinical course closely. MMODL / IJN: [id number] /
[2019-08-25 20:46] LABS: Glucose,Whole Blood 362 mg/dL (75-99)
[2019-08-26 07:12] LABS: Glucose,Whole Blood 339 mg/dL (75-99)
[2019-08-26 07:21] LABS: ALT 47 U/L (4-49); AST 37 U/L (17-59); African American GFR (CKD) >90 (>60 ml/min/1.73 sqM); Albumin 3.3 g/dL (3.5-5.0); Alkaline Phosphatase 59 U/L (38-126); Anion Gap 11 mmol/L; Blood Urea Nitrogen 13 mg/dL (9-20); Calcium 8.5 mg/dL (8.4-10.2); Carbon Dioxide 26 mmol/L (22-30); Chloride 101 mmol/L (98-107); Glucose 386 mg/dL (74-99); Magnesium 1.8 mg/dL (1.6-2.3); Non-African American GFR(CKD) >90 (>60 ml/min/1.73 sqM); Potassium 4.2 mmol/L (3.5-5.1); Sodium 138 mmol/L (137-145); Total Bilirubin 0.4 mg/dL (0.2-1.3); Total Protein 6.4 g/dL (6.3-8.2)
[2019-08-26] MEDS: INSULIN ASPART (NovoLOG) 100 UNIT/ML VIAL SQ SCH ×4 (07:47→20:57)
[2019-08-26] MEDS: ENOXAPARIN 40 MG/0.4 ML SYRINGE SQ SCH ×2 (07:48→20:58)
[2019-08-26] MEDS: HYDROXYCHLOROQUINE SULFATE 200 MG TAB PO SCH ×2 (07:50→20:58)
[2019-08-26] MEDS: predniSONE 20 MG TAB PO SCH ×2 (07:50→20:57)
[2019-08-26] MEDS: ALBUTEROL HFA INHALER INHALATION PRN ×3 (07:59→15:46)
[2019-08-26 09:53] LABS: C Reactive Protein 31.5 mg/L (<10.0)
[2019-08-26 11:44] LABS: Glucose,Whole Blood 375 mg/dL (75-99)
--- NOTE | 2019-08-26 13:07 | P.PN ---
Subjective 48-year-old male, currently in [facility]. Patient speaks only Faroese. He presents today with complaints of 2 weeks of cough shortness of breath and chest pain. He reports the emergency Department with fever 102. Patient is currently residing on the cold floor after he started to have symptoms. Also complains of not eating for the past 8 days and has had episodes of diarrhea and vomiting. Patient reports that he does have a history of thoracic aortic aneurysm. Patient barely speaks Monegasque. Patient has hyponatremia high-grade fevers increased LDH, normal d-dimer mild lymphopenia. Patient is covid 19 positive. 08/24/2019 Patient is clinically stable but stick rate requiring 4 L of falls and today compared to 3 L yesterday because of which the patient it to be monitored until we wean off the oxygen. 08/25/2019 Patient still remains on 4 L of vodka and saturating only 91% chest x-ray showing a bilateral pneumonia 6 consistent with Covid 19 infection 08/25/2019 Patient is bit better today and will try and wean off oxygen Constitutional: Denied any fatigue denied any fever. Cardio vascular: denied any chest pain, palpitations Gastrointestinal denied any nausea vomiting Pulmonary: Denied any shortness of breath cough Neurologic denied any new focal deficits All inpatient medications were reviewed and appropriate changes in these medications as dictated in the interval history and assessment and plan. Objective - Vital Signs Vital signs: Vital Signs Temp 97.6 F 08/26/19 11:25 Pulse 77 08/26/19 11:25 Resp 20 08/26/19 11:25 BP 159/77 08/26/19 11:25 Pulse Ox 94 L 08/26/19 11:25 Intake & Output 08/25/19 08/26/19 08/26/19 18:59 06:59 18:59 Intake Total 530 Output Total 700 1600 700 Balance -170 -1600 -700 Intake: Oral 530 Output: Urine 700 1600 700 Other: # Voids 3 1 - Exam PHYSICAL EXAMINATION: GENERAL: The patient is alert and oriented x3, not in any acute distress. Well developed, well nourished. HEENT: Pupils are round and equally reacting to light. EOMI. No scleral icterus. No conjunctival pallor. Normocephalic, atraumatic. No pharyngeal erythema. No thyromegaly. CARDIOVASCULAR: S1 and S2 present. No murmurs, rubs, or gallops. PULMONARY: Chest is clear to auscultation, no wheezing or crackles. ABDOMEN: Soft, nontender, nondistended, normoactive bowel sounds. No palpable organomegaly. MUSCULOSKELETAL: No joint swelling or deformity. EXTREMITIES: No cyanosis, clubbing, or pedal edema. NEUROLOGICAL: Gross neurological examination did not reveal any focal deficits. SKIN: No rashes. Note: Because of COVID 19 isolation, some of the history and physical exam findings or indirect and obtained from nursing staff, and other physician examinations to avoid unnecessary contact with the patient. - Labs CBC & Chem 7: 08/25/19 06:04 08/26/19 06:25 Labs: Abnormal Lab Results - Last 24 Hours (Table) 08/25/19 08/25/19 08/26/19 Range/Units 16:42 20:45 06:25 Creatinine 0.49 L (0.66-1.25) mg/dL Glucose 386 H (74-99) mg/dL POC Glucose (mg/dL) 316 H 362 H (75-99) mg/dL Ferritin (22.0-322.0) ng/mL C-Reactive Protein 31.5 H (<10.0) mg/L Albumin 3.3 L (3.5-5.0) g/dL 08/26/19 08/26/19 08/26/19 Range/Units 06:25 07:10 11:42 Creatinine (0.66-1.25) mg/dL Glucose (74-99) mg/dL POC Glucose (mg/dL) 339 H 375 H (75-99) mg/dL Ferritin 1024.8 H (22.0-322.0) ng/mL C-Reactive Protein (<10.0) mg/L Albumin (3.5-5.0) g/dL Microbiology - Last 24 Hours (Table) 08/23/19 06:54 Blood Culture - Preliminary Blood No Growth after 72 hours Assessment and Plan Plan: Acute hypoxic respiratory failure: Seconded to Covid 19 infection. Patient will be can you done supportive care if needed patient will be started on steroids patient will not be started on any hydroxychloroquine at this time. Patient's O2 requirements remains the same as yesterday -Type 2 diabetes mellitus. Sliding scale insulin for now -Hypovolemic hyponatremia continue with IV fluids, hypervolemic hyponatremia resolved IV fluids were discontinued -Hypertension: Patient was on lisinopril at home holding of that medication to avoid any hypotension related to sepsis -Obesity
--- NOTE | 2019-08-26 13:13 | PN ---
PROGRESS NOTE PULMONARY/CRITICAL CARE PROGRESS NOTE: DATE OF SERVICE: 08/26/2019 This is a 48-year-old inmate at the [facility]. He was admitted with acute hypoxemic respiratory failure secondary to acute COVID-19 pneumonia. The patient complained of primarily shortness of breath, cough, and fever. He was also having some nausea and vomiting. His pro inflammatory markers such as his ferritin level, LDH, C- reactive protein, were all elevated. The patient's chest x-ray showed bilateral infiltrates. The patient apparently has a history of hypertension, hyperlipidemia, aortic aneurysm, GERD, type 2 diabetes. He does not speak a lick of Australian. It is hard to get any history from him and we have to typically use an rail detector car operator. Anyway, currently resting comfortably. On about 3 L nasal cannula. Getting saline at 20 mL an hour. He appears to be much more comfortable today than when we saw him in consultation. Current vital signs are reviewed, temperature 97.6, heart rate 77, rate respiratory rate 20, blood pressure 159/77 mean 104, 5 L saturation 94%. When we went into the room, his FiO2 is a nasal cannula was set at 3 L. Appears in no acute distress. Resting comfortably. Flat on his back. No audible wheezing, use of accessory muscles or conversational dyspnea. HEENT: Examination is grossly unremarkable. NECK: Supple full range of motion. No adenopathy, thyromegaly or neck vein distention. CARDIOVASCULAR: Examination reveals regular rhythm rate. Heart rate 77 beats per minute. S1, S2 normal. LUNGS: Reveal diffuse bilateral rhonchi. No wheezes or crackles. Breath sounds equal bilaterally. ABDOMEN: Soft, bowel sounds are heard. EXTREMITIES: Intact. No cyanosis, clubbing, or edema. SKIN: Without rash. NEUROLOGIC: Examination is difficult to assess given the language barrier. He does move all 4 extremities well. LABS: Reviewed. D-dimer 0.24. Sodium 138, potassium 4.2 chloride 101, CO2 is 26, anion gap is 11, BUN and creatinine were 13 and 0.49. Calcium 8.5, ferritin 1024. AST, ALT were normal. C-reactive protein 31.5, albumin 3.3. Chest x-ray from August 24 shows scattered airspace disease, more right than left-sided. Medications have been reviewed. He is currently on Tylenol, albuterol inhaler, Rocephin Lovenox, Mucinex, hydroxychloroquine, insulin, Narcan, Zofran, and prednisone. ASSESSMENT: 1. Acute hypoxemic respiratory failure secondary to acute COVID-19 pneumonia/pneumonitis, stable. 2. Fever, cough, shortness of breath all, secondary to above. 3. Elevated pro inflammatory markers such as ferritin, LDH, and C-reactive protein, consistent with acute COVID-19 infection. 4. Bilateral diffuse infiltrates, consistent with COVID-19 pneumonitis. 5. History of benign essential hypertension. 6. History of hyperlipidemia. 7. History of stable aortic aneurysm. 8. History of gastroesophageal reflux disease. 9. Diabetes mellitus, type 2. PLAN: The patient seems to be doing relatively well. Will continue to follow. Prognosis is guarded. He remains on an albuterol inhaler, hydroxychloroquine, and steroids. No additional recommendations are made. Prognosis is guarded. MMODL / IJN: [id number] /
[2019-08-26 16:37] LABS: Glucose,Whole Blood 336 mg/dL (75-99)
--- NOTE | 2019-08-26 17:18 | PN ---
PROGRESS NOTE DATE OF SERVICE: 08/26/2019 REASON FOR FOLLOWUP: Acute COVID-19 pneumonia. INTERVAL HISTORY: The patient is currently afebrile. The patient is breathing comfortably. FiO2 is currently down to 4 L nasal cannula. It is hard to communicate with him because of the language barrier, but no drainage is reported by nursing staff; rather, they mentioned he is getting better. No vomiting or diarrhea reported. PHYSICAL EXAMINATION: Blood pressure 130/77, pulse of 93, temperature 98.4. He is 92% on 4 L nasal cannula. General description is a middle-aged male lying in bed in no distress. RESPIRATORY SYSTEM: Unlabored breathing with decreased breath sounds at the base. No wheeze. HEART: S1, S2. Regular rate and rhythm. ABDOMEN: Soft. No tenderness. LABS: BUN of 13, creatinine 0.49. Blood culture has been negative. DIAGNOSTIC IMPRESSION AND PLAN: Patient with a fever and has been diagnosed with acute COVID-19 pneumonia. Patient clinically responded to Plaquenil and steroid. Lovenox to continue and monitor his clinical course closely. Continue with supportive care. MMODL / IJN: [id number] /
[2019-08-26 20:18] LABS: Glucose,Whole Blood 313 mg/dL (75-99)
[2019-08-26] MEDS: INSULIN DETEMIR (LEVEMIR) 100 UNIT/ML SYR SQ SCH (20:57)
[2019-08-26] MEDS: ACETAMINOPHEN TAB 325 MG TAB PO PRN (20:58)
[2019-08-27 07:09] LABS: Glucose,Whole Blood 264 mg/dL (75-99)
--- NOTE | 2019-08-27 07:23 | XR ---
EXAMINATION TYPE: XR chest 1V portable DATE OF EXAM: 08/27/2019 HISTORY: Shortness of breath. COMPARISON: 08/25/2019 TECHNIQUE: Single view of the chest is submitted. FINDINGS: Demonstrated are scattered senescent parenchymal change. Scattered bilateral interstitial infiltrate remains unchanged relative to the prior study. The heart is stable. Hilar and mediastinal structures are within normal limits. Degenerative changes are seen of the dorsal spine. IMPRESSION: 1. Scattered bilateral interstitial infiltrate remains unchanged relative to the prior study.
[2019-08-27 07:24] LABS: ALT 57 U/L (4-49); AST 37 U/L (17-59); African American GFR (CKD) >90 (>60 ml/min/1.73 sqM); Albumin 3.6 g/dL (3.5-5.0); Alkaline Phosphatase 56 U/L (38-126); Anion Gap 11 mmol/L; Blood Urea Nitrogen 13 mg/dL (9-20); Calcium 8.8 mg/dL (8.4-10.2); Carbon Dioxide 31 mmol/L (22-30); Chloride 96 mmol/L (98-107); Glucose 317 mg/dL (74-99); Magnesium 1.9 mg/dL (1.6-2.3); Non-African American GFR(CKD) >90 (>60 ml/min/1.73 sqM); Potassium 4.6 mmol/L (3.5-5.1); Sodium 138 mmol/L (137-145); Total Bilirubin 0.6 mg/dL (0.2-1.3); Total Protein 6.8 g/dL (6.3-8.2)
[2019-08-27] MEDS: INSULIN ASPART (NovoLOG) 100 UNIT/ML VIAL SQ SCH ×4 (07:30→21:20)
[2019-08-27] MEDS: HYDROXYCHLOROQUINE SULFATE 200 MG TAB PO SCH ×2 (07:31→21:21)
[2019-08-27] MEDS: predniSONE 20 MG TAB PO SCH ×2 (07:31→21:21)
[2019-08-27] MEDS: ENOXAPARIN 40 MG/0.4 ML SYRINGE SQ SCH ×2 (07:32→21:20)
[2019-08-27 08:03] LABS: C Reactive Protein 23.5 mg/L (<10.0)
[2019-08-27 11:54] LABS: Glucose,Whole Blood 282 mg/dL (75-99)
--- NOTE | 2019-08-27 12:32 | PN ---
PROGRESS NOTE PULMONARY/CRITICAL CARE PROGRESS NOTE: DATE OF SERVICE: 08/27/2019 A 48-year-old inmate from [facility]. He was admitted with acute hypoxemic respiratory failure secondary to acute COVID-19 pneumonia. The patient complained primarily of shortness of breath, cough and fever. He also has some nausea and vomiting. He did have elevated proinflammatory markers. His chest x-ray was consistent with bilateral infiltrates. He does suffer from hypertension, hyperlipidemia, aortic aneurysm, GERD, and type 2 diabetes mellitus. Unfortunately, the patient does not speak any Telugu whatsoever. He is currently shackled to the bed in his room. Current vital signs include temperature 97.4, heart rate 78, respiratory rate 18, blood pressure 153/95 mean 114 and 3 L saturation 96%. Appears in no acute distress. He does not appear to have any significant respiratory decline or demise. No conversational dyspnea. No use of accessory muscles or audible wheezing. HEENT: Examination is grossly unremarkable. Nasal O2 in place at 3 L. NECK: Supple, full range of motion. No adenopathy, thyromegaly or neck vein distention. CARDIOVASCULAR: Examination reveals regular rhythm and rate. He is not tachycardic. Heart rate mid 70s. S1, S2 normal. LUNGS: Reveal a few scattered rhonchi. ABDOMEN: Soft, bowel sounds are heard. EXTREMITIES: Intact. No cyanosis, clubbing, or edema. SKIN: Without rash. NEUROLOGIC: Examination is nonfocal. Current labs include a D-dimer of 0.26. Sodium 138, potassium 4.6, chloride 96, CO2 is 31. Anion gap is 11, BUN and creatinine were 13 and 0.49. ALT was 57. C-reactive protein 23.5. A repeat chest x-ray today compared to the x-ray done on August 24 shows some bilateral diffuse scattered interstitial infiltrates which are unchanged. Certainly, no worse. Microbiology is negative. MEDICATIONS: Reviewed. He is currently on Tylenol, albuterol inhaler, Rocephin, Lovenox, guaifenesin, hydroxychloroquine, insulin, Narcan, Zofran, prednisone orally. ASSESSMENT: 1. Acute hypoxemic respiratory failure secondary to acute COVID-19 pneumonia/pneumonitis, very stable. 2. Fever, cough, shortness of breath, all secondary to the COVID infection. 3. Elevated proinflammatory markers such as ferritin, LDH, and C-reactive protein, consistent with acute COVID-19 pneumonia. 4. Bilateral diffuse infiltrates, consistent with COVID-19 pneumonitis. 5. History of benign essential hypertension. 6. History of hyperlipidemia. 7. History of stable aortic aneurysm. 8. History of gastroesophageal reflux disease. 9. History of diabetes mellitus, type 2. PLAN: The patient's chest x-ray today IS stable. There has been no progression. His respiratory status is stable. He remains on 2-3 L. He is on appropriate medications. Will continue to follow. Prognosis is guarded. MMODL / IJN: [id number] /
--- NOTE | 2019-08-27 14:15 | P.PN ---
Subjective 48-year-old male, currently in [facility]. Patient speaks only Austrian. He presents today with complaints of 2 weeks of cough shortness of breath and chest pain. He reports the emergency Department with fever 102. Patient is currently residing on the cold floor after he started to have symptoms. Also complains of not eating for the past 8 days and has had episodes of diarrhea and vomiting. Patient reports that he does have a history of thoracic aortic aneurysm. Patient barely speaks Chinese. Patient has hyponatremia high-grade fevers increased LDH, normal d-dimer mild lymphopenia. Patient is covid 19 positive. 08/24/2019 Patient is clinically stable but stick rate requiring 4 L of falls and today compared to 3 L yesterday because of which the patient it to be monitored until we wean off the oxygen. 08/25/2019 Patient still remains on 4 L of vodka and saturating only 91% chest x-ray showing a bilateral pneumonia 6 consistent with Covid 19 infection 08/26/2019 Patient is bit better today and will try and wean off oxygen 08/27/2019 Patient's also requirements are slowly coming down patient is presently on 3 L of oxygen no complaints today cough improved Constitutional: Denied any fatigue denied any fever. Cardio vascular: denied any chest pain, palpitations Gastrointestinal denied any nausea vomiting Pulmonary: Denied any shortness of breath cough Neurologic denied any new focal deficits All inpatient medications were reviewed and appropriate changes in these medications as dictated in the interval history and assessment and plan. Objective - Vital Signs Vital signs: Vital Signs Temp 98 F 08/27/19 11:00 Pulse 70 08/27/19 11:00 Resp 18 08/27/19 11:00 BP 140/93 08/27/19 11:00 Pulse Ox 97 08/27/19 11:00 Intake & Output 08/26/19 08/27/19 08/27/19 18:59 06:59 18:59 Intake Total 236 596 Output Total 1800 1050 Balance -1564 -1050 596 Intake: Oral 236 596 Output: Urine 1800 1050 Other: # Voids 1 - Exam PHYSICAL EXAMINATION: GENERAL: The patient is alert and oriented x3, not in any acute distress. Well developed, well nourished. HEENT: Pupils are round and equally reacting to light. EOMI. No scleral icterus. No conjunctival pallor. Normocephalic, atraumatic. No pharyngeal erythema. No thyromegaly. CARDIOVASCULAR: S1 and S2 present. No murmurs, rubs, or gallops. PULMONARY: Chest is clear to auscultation, no wheezing or crackles. ABDOMEN: Soft, nontender, nondistended, normoactive bowel sounds. No palpable organomegaly. MUSCULOSKELETAL: No joint swelling or deformity. EXTREMITIES: No cyanosis, clubbing, or pedal edema. NEUROLOGICAL: Gross neurological examination did not reveal any focal deficits. SKIN: No rashes. Note: Because of COVID 19 isolation, some of the history and physical exam findings or indirect and obtained from nursing staff, and other physician examinations to avoid unnecessary contact with the patient. - Labs CBC & Chem 7: 08/25/19 06:04 08/27/19 06:08 Labs: Abnormal Lab Results - Last 24 Hours (Table) 08/26/19 08/26/19 08/27/19 Range/Units 16:35 20:17 06:08 Chloride 96 L (98-107) mmol/L Carbon Dioxide 31 H (22-30) mmol/L Creatinine 0.49 L (0.66-1.25) mg/dL Glucose 317 H (74-99) mg/dL POC Glucose (mg/dL) 336 H 313 H (75-99) mg/dL ALT 57 H (4-49) U/L C-Reactive Protein 23.5 H (<10.0) mg/L 08/27/19 08/27/19 Range/Units 07:07 11:52 Chloride (98-107) mmol/L Carbon Dioxide (22-30) mmol/L Creatinine (0.66-1.25) mg/dL Glucose (74-99) mg/dL POC Glucose (mg/dL) 264 H 282 H (75-99) mg/dL ALT (4-49) U/L C-Reactive Protein (<10.0) mg/L Microbiology - Last 24 Hours (Table) 08/23/19 06:54 Blood Culture - Preliminary Blood No Growth after 96 hours Assessment and Plan Plan: Acute hypoxic respiratory failure: Seconded to Covid 19 infection. Patient will be can you done supportive care if needed patient will be started on steroids patient will not be started on any hydroxychloroquine at this time. Patient's O2 requirements have come down he shouldn't is bit better today expecting his im provement in a day or 2 -Type 2 diabetes mellitus. Sliding scale insulin for now -Hypovolemic hyponatremia continue with IV fluids, hypervolemic hyponatremia resolved IV fluids were discontinued -Hypertension: Patient was on lisinopril at home holding of that medication to avoid any hypotension related to sepsis -Obesity
[2019-08-27 16:53] LABS: Glucose,Whole Blood 333 mg/dL (75-99)
--- NOTE | 2019-08-27 18:05 | PN ---
PROGRESS NOTE DATE OF SERVICE: 08/27/2019 REASON FOR FOLLOWUP: Acute COVID-19 pneumonia. INTERVAL HISTORY: The patient is currently afebrile. The patient seems to be breathing comfortably. Still complaining of some cough; however, unable to provide a reliable history because of language barrier. No vomiting or any diarrhea has been reported. His FiO2 is currently at 4 L. PHYSICAL EXAMINATION: Blood pressure 128/84 with a pulse of 74, temperature 98.2. He is 94% on 4 L nasal cannula. General description is a middle-aged male lying in bed in no distress. RESPIRATORY SYSTEM: Unlabored breathing. Clear to auscultation anteriorly. HEART: S1, S2. Regular rate and rhythm. ABDOMEN: Soft. No tenderness. LABS: BUN of 13, creatinine 0.49. CRP 23.5. Blood cultures negative. Sputum not collected. DIAGNOSTIC IMPRESSION AND PLAN: Patient with acute COVID-19 pneumonia. Patient's fever has resolved. He seems to be breathing comfortably. Continue with the Plaquenil, prednisone, Lovenox and supplemental oxygen. Monitor his clinical course closely. MMODL / IJN: [id number] /
[2019-08-27 20:40] LABS: Glucose,Whole Blood 319 mg/dL (75-99)
[2019-08-27] MEDS: INSULIN DETEMIR (LEVEMIR) 100 UNIT/ML SYR SQ SCH (21:21)
[2019-08-28] MEDS: ACETAMINOPHEN TAB 325 MG TAB PO PRN (05:31)
[2019-08-28 06:53] LABS: Glucose,Whole Blood 341 mg/dL (75-99)
[2019-08-28] MEDS: INSULIN ASPART (NovoLOG) 100 UNIT/ML VIAL SQ SCH ×4 (08:10→20:57)
[2019-08-28] MEDS: predniSONE 20 MG TAB PO SCH (08:11)
[2019-08-28] MEDS: ENOXAPARIN 40 MG/0.4 ML SYRINGE SQ SCH ×2 (08:11→20:58)
[2019-08-28] MEDS: HYDROXYCHLOROQUINE SULFATE 200 MG TAB PO SCH (08:25)
[2019-08-28 11:51] LABS: Glucose,Whole Blood 330 mg/dL (75-99)
--- NOTE | 2019-08-28 13:05 | P.PN ---
Subjective Progress Note Date: 08/28/19 Principal diagnosis: Acute hypoxic respiratory failure secondary to acute CoVID 19 pneumonitis 48-year-old male from [facility], with previous medical history of hypertension, hyperlipidemia, diabetes mellitus type 2, history of aortic aneurysm, GERD/reflux, who was brought in from [facility] on 08/23/2019 after complaints of not feeling well for 2 weeks with symptoms of fever, cough, shortness of breath and chest pain. Patient was also complaining of vomiting for 2 days prior, diaphoresis. Patient does not speak very much Nauruan, and certified trains dispatcher supervisor services were used while interviewing the patient. Also chart was reviewed and history was also obtained from the chart. Chest x-ray showed patchy bilateral airspace disease, borderline cardiomegaly and small bilateral pleural effusions could not be excluded. On presentation his fever was 100.3F. Pulse ox was 91% on room air, patient was placed on supplemental oxygen he is currently on 4 L per nasal cannula with a pulse ox of 94%, he is tachypneic, and appears to be short of breath at rest. Lab work showed a white blood cell count 5.8, hemoglobin of 14.0, lymphopenia with the lymphocyte count of 0.8, INR is 1.2, d-dimer was 0.34, serum sodium was 133, the rest of electrolytes and renal profile were within normal limits, serum glucose was 139, plasma lactic acid was 1.2, ferritin was 1114, LDH was 748, troponin was 0.013, CRP was 79.8, pro calcitonin was 0.24, coronavirus PCR was positive, patient was started on Plaquenil, oral prednisone, he was given gentle IV hydration with a total of 1 L and IV fluid bolus and right now he has maintenance IVs infusing at a rate of 100 ML per hour. The patient is seen today 08/28/2019 in follow-up on the regular medical floor. He is currently awake and alert in no acute distress. Resting comfortably in bed. Maintaining good O2 saturations in the 90s on 3 L/m per nasal cannula. He's been afebrile. Hemodynamically stable. Blood cultures reveal no growth. Blood glucose 330. He is continued on ceftriaxone, prednisone. He has completed a course of Plaquenil. Remains on Lovenox. Objective - Vital Signs Vital signs: Vital Signs Temp 97.6 F 08/28/19 08:00 Pulse 68 08/28/19 08:00 Resp 16 08/28/19 08:00 BP 148/96 08/28/19 08:00 Pulse Ox 96 08/28/19 08:00 Intake & Output 08/27/19 08/28/19 08/28/19 18:59 06:59 18:59 Intake Total 1188 Output Total 900 800 Balance 288 -800 Intake: Oral 1188 Output: Urine 900 800 Other: # Voids 1 1 - Exam GENERAL EXAM: Alert, pleasant, 48-year-old male patient, currently on 3 L/m per nasal cannula maintaining O2 saturations in the 90s, comfortable in no apparent distress. HEAD: Normocephalic/atraumatic. EYES: Normal reaction of pupils, equal size. Conjunctiva pink, sclera white. NOSE: Clear with pink turbinates. THROAT: No erythema or exudates. NECK: No masses, no JVD, no thyroid enlargement, no adenopathy. CHEST: No chest wall deformity. Symmetrical expansion. LUNGS: Equal air entry with bilateral scattered rhonchi. CVS: Regular rate and rhythm, normal S1 and S2, no gallops, no murmurs, no rubs ABDOMEN: Soft, nontender. No hepatosplenomegaly, normal bowel sounds, no guarding or rigidity. EXTREMITIES: No clubbing, no edema, no cyanosis, 2+ pulses and upper and lower extremities. MUSCULOSKELETAL: Muscle strength and tone normal. SPINE: No scoliosis or deformity SKIN: No rashes CENTRAL NERVOUS SYSTEM: No focal deficits, tone is normal in all 4 extremities. PSYCHIATRIC: Alert and oriented -3. Appropriate affect. Intact judgment and insight. - Labs CBC & Chem 7: 08/25/19 06:04 08/27/19 06:08 Labs: Abnormal Lab Results - Last 24 Hours (Table) 08/27/19 08/27/19 08/28/19 Range/Units 16:52 20:39 06:52 POC Glucose (mg/dL) 333 H 319 H 341 H (75-99) mg/dL 08/28/19 Range/Units 11:47 POC Glucose (mg/dL) 330 H (75-99) mg/dL Microbiology - Last 24 Hours (Table) 08/23/19 06:54 Blood Culture - Preliminary Blood No Growth after 120 hours Assessment and Plan Assessment: #1. Acute hypoxic respiratory failure secondary to acute COVID-19 pneumonitis #2. Weakness, shortness of breath, nausea, vomiting, fever related to the above #3. Elevated ferritin, LDH and CRP related to acute COVID 19 infection #4. Bilateral infiltrates related to acute COVID 19 pneumonitis #5. Hypertension #6. Hyperlipidemia #7. History of aortic aneurysm #8. GERD/reflux #9. Diabetes mellitus type 2 Plan: The patient was seen and evaluated by Dr. Do He is improved from the pulmonary standpoint Continue the current treatment plan Titrate down the FiO2 as tolerated We will continue to follow and make further recommendations based on his clinical status I, the cosigning physician, performed a history & physical examination of the patient. Lungs sounds with few scattered rhonchi. Maintaining good O2 saturations in the 90s on 3 L/m per nasal cannula. I discussed the assessment and plan of care with my nurse practitioner, Abby Barone. I attest to the above note as dictated by her.
[2019-08-28 13:45] VITALS: BMI 41.1
--- NOTE | 2019-08-28 14:25 | PN ---
PROGRESS NOTE DATE OF SERVICE: 08/28/2019 REASON FOR FOLLOWUP: Acute COVID-19 pneumonia. INTERVAL HISTORY: The patient is currently afebrile. He has been breathing comfortably. FiO2 is currently down to 2 L. No abdominal pain. No vomiting or any diarrhea reported. PHYSICAL EXAMINATION: Blood pressure 148/96, pulse of 68, temperature 97.6. He is 96% on 2 L nasal cannula. General description is a middle-aged male, lying in bed in no distress. RESPIRATORY SYSTEM: Unlabored breathing, clear to auscultation anteriorly. HEART: S1, S2. Regular rate and rhythm. ABDOMEN: Soft, no tenderness. LABS: No new labs have been obtained today or any x-rays. DIAGNOSTIC IMPRESSION AND PLAN: Patient with acute COVID-19 pneumonia, for which the patient has completed his Plaquenil therapy. Patient did have overall clinical improvement with Plaquenil and FiO2 is cut down to 2. Fever has resolved. Continue with current supportive care and difficulty. Will monitor clinical course closely. MMODL / IJN: [id number] /
[2019-08-28 16:36] LABS: Glucose,Whole Blood 367 mg/dL (75-99)
[2019-08-28 16:44] LABS: Hemoglobin A1C 7.9 % (4.0-6.0)
[2019-08-28 20:43] LABS: Glucose,Whole Blood 344 mg/dL (75-99)
[2019-08-28] MEDS: INSULIN DETEMIR (LEVEMIR) 100 UNIT/ML SYR SQ SCH (20:58)
--- NOTE | 2019-08-29 06:51 | XR ---
EXAMINATION TYPE: XR chest 1V portable DATE OF EXAM: 08/29/2019 HISTORY: COVID 19 pneumonitis. REFERENCE: Previous study dated 08/27/2019. FINDINGS: There continue to be bilateral infiltrates. These are partially improved. The heart is not enlarged. Pleural spaces are clear. IMPRESSION: IMPROVED AERATION, BOTH LUNGS.
[2019-08-29 07:27] LABS: Glucose,Whole Blood 288 mg/dL (75-99)
[2019-08-29] MEDS: ALBUTEROL HFA INHALER INHALATION PRN ×3 (07:27→18:47)
[2019-08-29] MEDS: INSULIN ASPART (NovoLOG) 100 UNIT/ML VIAL SQ SCH ×5 (07:51→21:03)
[2019-08-29] MEDS: ENOXAPARIN 40 MG/0.4 ML SYRINGE SQ SCH ×2 (07:52→21:03)
[2019-08-29] MEDS: predniSONE 20 MG TAB PO SCH (07:52)
[2019-08-29 07:55] LABS: HCT 47.3 % (39.0-53.0); HGB 14.8 gm/dL (13.0-17.5); MCH 26.3 pg (25.0-35.0); MCHC 31.3 g/dL (31.0-37.0); Mean Platelet Volume 9.1; Platelet Count 261 k/uL (150-450); RBC 5.64 m/uL (4.30-5.90); RDW 12.5 % (11.5-15.5); WBC 11.1 k/uL (3.8-10.6)
[2019-08-29 08:07] LABS: African American GFR (CKD) >90 (>60 ml/min/1.73 sqM); Anion Gap 7 mmol/L; Blood Urea Nitrogen 25 mg/dL (9-20); C Reactive Protein 11.2 mg/L (<10.0); Calcium 8.9 mg/dL (8.4-10.2); Carbon Dioxide 33 mmol/L (22-30); Chloride 97 mmol/L (98-107); Creatine Kinase 38 U/L (55-170); Glucose 297 mg/dL (74-99); LDH 473 U/L (313-618); Non-African American GFR(CKD) >90 (>60 ml/min/1.73 sqM); Potassium 4.2 mmol/L (3.5-5.1); Sodium 137 mmol/L (137-145)
--- NOTE | 2019-08-29 12:06 | P.PN ---
Subjective Progress Note Date: 08/29/19 Principal diagnosis: Acute hypoxic respiratory failure secondary to acute CoVID 19 pneumonitis 48-year-old male from [facility], with previous medical history of hypertension, hyperlipidemia, diabetes mellitus type 2, history of aortic aneurysm, GERD/reflux, who was brought in from [facility] on 08/23/2019 after complaints of not feeling well for 2 weeks with symptoms of fever, cough, shortness of breath and chest pain. Patient was also complaining of vomiting for 2 days prior, diaphoresis. Patient does not speak very much Liberian, and certified stone setter services were used while interviewing the patient. Also chart was reviewed and history was also obtained from the chart. Chest x-ray showed patchy bilateral airspace disease, borderline cardiomegaly and small bilateral pleural effusions could not be excluded. On presentation his fever was 100.3F. Pulse ox was 91% on room air, patient was placed on supplemental oxygen he is currently on 4 L per nasal cannula with a pulse ox of 94%, he is tachypneic, and appears to be short of breath at rest. Lab work showed a white blood cell count 5.8, hemoglobin of 14.0, lymphopenia with the lymphocyte count of 0.8, INR is 1.2, d-dimer was 0.34, serum sodium was 133, the rest of electrolytes and renal profile were within normal limits, serum glucose was 139, plasma lactic acid was 1.2, ferritin was 1114, LDH was 748, troponin was 0.013, CRP was 79.8, pro calcitonin was 0.24, coronavirus PCR was positive, patient was started on Plaquenil, oral prednisone, he was given gentle IV hydration with a total of 1 L and IV fluid bolus and right now he has maintenance IVs infusing at a rate of 100 ML per hour. The patient is seen today 08/28/2019 in follow-up on the regular medical floor. He is currently awake and alert in no acute distress. Resting comfortably in bed. Maintaining good O2 saturations in the 90s on 3 L/m per nasal cannula. He's been afebrile. Hemodynamically stable. Blood cultures reveal no growth. Blood glucose 330. He is continued on ceftriaxone, prednisone. He has completed a course of Plaquenil. Remains on Lovenox. The patient is seen today 08/29/2019 in follow-up on the regular medical floor. Awake and alert in no acute distress. He is maintaining O2 saturations in the 90s on 3 L/m per nasal cannula. His been afebrile. Hemodynamically stable. Chest x-ray revealed improved aeration bilaterally. Blood culture reveals no growth. White count 11.1. Hemoglobin 14.8. D-dimer 0.26. Sodium 137. Potassium 4.2. Creatinine 0.64. LDH 473. C-reactive protein 11.2. He remains on ceftriaxone, Lovenox, prednisone. Objective - Vital Signs Vital signs: Vital Signs Temp 97.6 F 08/29/19 11:00 Pulse 79 08/29/19 11:00 Resp 18 08/29/19 11:00 BP 126/83 08/29/19 11:00 Pulse Ox 91 L 08/29/19 11:00 Intake & Output 08/28/19 08/29/19 08/29/19 18:59 06:59 18:59 Intake Total 500 926 Output Total 1150 1800 Balance -1150 -1300 926 Weight 145.15 kg Intake: Intake, IV Titration 50 Amount cefTRIAXone 2 gm In 50 Sodium Chloride 0.9% 50 ml @ 100 mls/hr IVPB Q24HR [facility] Rx#:[id number] Oral 500 876 Output: Urine 1150 1800 Other: Voiding Method Urinal Urinal # Voids 1 2 - Exam GENERAL EXAM: Alert, pleasant, 48-year-old male patient, currently on 3 L/m per nasal cannula maintaining O2 saturations in the 90s, comfortable in no apparent distress. HEAD: Normocephalic/atraumatic. EYES: Normal reaction of pupils, equal size. Conjunctiva pink, sclera white. NOSE: Clear with pink turbinates. THROAT: No erythema or exudates. NECK: No masses, no JVD, no thyroid enlargement, no adenopathy. CHEST: No chest wall deformity. Symmetrical expansion. LUNGS: Equal air entry with bilateral scattered rhonchi. CVS: Regular rate and rhythm, normal S1 and S2, no gallops, no murmurs, no rubs ABDOMEN: Soft, nontender. No hepatosplenomegaly, normal bowel sounds, no guarding or rigidity. EXTREMITIES: No clubbing, no edema, no cyanosis, 2+ pulses and upper and lower extremities. MUSCULOSKELETAL: Muscle strength and tone normal. SPINE: No scoliosis or deformity SKIN: No rashes CENTRAL NERVOUS SYSTEM: No focal deficits, tone is normal in all 4 extremities. PSYCHIATRIC: Alert and oriented -3. Appropriate affect. Intact judgment and insight. - Labs CBC & Chem 7: 08/29/19 07:42 08/29/19 07:42 Labs: Abnormal Lab Results - Last 24 Hours (Table) 08/27/19 08/27/19 08/28/19 Range/Units 06:08 06:08 16:34 WBC (3.8-10.6) k/uL Chloride (98-107) mmol/L Carbon Dioxide (22-30) mmol/L BUN (9-20) mg/dL Creatinine (0.66-1.25) mg/dL Glucose (74-99) mg/dL POC Glucose (mg/dL) 367 H (75-99) mg/dL Hemoglobin A1c 7.9 H (4.0-6.0) % Ferritin 1213.0 H (22.0-322.0) ng/mL Creatine Kinase (55-170) U/L C-Reactive Protein (<10.0) mg/L 08/28/19 08/29/19 08/29/19 Range/Units 20:41 07:25 07:42 WBC (3.8-10.6) k/uL Chloride 97 L (98-107) mmol/L Carbon Dioxide 33 H (22-30) mmol/L BUN 25 H (9-20) mg/dL Creatinine 0.64 L (0.66-1.25) mg/dL Glucose 297 H (74-99) mg/dL POC Glucose (mg/dL) 344 H 288 H (75-99) mg/dL Hemoglobin A1c (4.0-6.0) % Ferritin (22.0-322.0) ng/mL Creatine Kinase 38 L (55-170) U/L C-Reactive Protein 11.2 H (<10.0) mg/L 08/29/19 Range/Units 07:42 WBC 11.1 H (3.8-10.6) k/uL Chloride (98-107) mmol/L Carbon Dioxide (22-30) mmol/L BUN (9-20) mg/dL Creatinine (0.66-1.25) mg/dL Glucose (74-99) mg/dL POC Glucose (mg/dL) (75-99) mg/dL Hemoglobin A1c (4.0-6.0) % Ferritin (22.0-322.0) ng/mL Creatine Kinase (55-170) U/L C-Reactive Protein (<10.0) mg/L Microbiology - Last 24 Hours (Table) 08/23/19 06:54 Blood Culture - Final Blood No Growth after 144 hours Assessment and Plan Assessment: #1. Acute hypoxic respiratory failure secondary to acute COVID-19 pneumonitis #2. Weakness, shortness of breath, nausea, vomiting, fever related to the above #3. Elevated ferritin, LDH and CRP related to acute COVID 19 infection #4. Bilateral infiltrates related to acute COVID 19 pneumonitis #5. Hypertension #6. Hyperlipidemia #7. History of aortic aneurysm #8. GERD/reflux #9. Diabetes mellitus type 2 Plan: The patient was seen and evaluated by Dr. Do Chest x-ray reviewed Continue the current treatment plan Titrate down the FiO2 as tolerated We will continue to follow and make further recommendations based on his clinic al status I, the cosigning physician, performed a history & physical examination of the patient. Lungs sounds with few scattered rhonchi. Maintaining good O2 saturations in the 90s on 3 L/m per nasal cannula. I discussed the assessment and plan of care with my nurse practitioner, Abby Barone. I attest to the above note as dictated by her.
[2019-08-29 12:08] LABS: Glucose,Whole Blood 335 mg/dL (75-99)
--- NOTE | 2019-08-29 16:40 | P.PN ---
Subjective Progress Note Date: 08/29/19 Principal diagnosis: COVID- 19 infection Mr. Esparza is a 48-year-old male, brought in from [facility], who speaks only Congolese, with history of diabetes mellitus brought into the hospital with a chief complaints of cough and chest pain for 2 weeks. In the emergency d epartment patient was tested for covid 19 and admitted for further management. On 08/29/2019- patient is comfortably lying in bed appears to be in no acute distress. Patient does not speak Azeri but he can understand. He denies having any complaints other than that his breathing is still difficult. He still is feeling tired and fatigued and has generalized weakness. On reviewing his vitals he is saturating in 90s on 3 L of oxygen via nasal cannula. Blood pressure is 126 biapically, temperature of 97.6, heart rate of 79 and respiratory of 18. On reviewing the patient's labs his white count is 11.1 trending up. Sodium 137, potassium 4.2, we went to 25, creatinine 0.64 and d- dimer of 0.06. Active Medications Acetaminophen (Tylenol Tab) 650 mg PO Q6HR PRN PRN Reason: Mild Pain or Fever > 100.5 Last Admin: 08/28/19 05:31 Dose: 650 mg Documented by: Albuterol Sulfate (Ventolin Hfa Inhaler) 2 puff INHALATION RT-QID PRN PRN Reason: Shortness Of Breath Or Wheezing Last Admin: 08/29/19 15:49 Dose: 2 puff Documented by: Enoxaparin Sodium (Lovenox) 40 mg SQ BID [facility] Last Admin: 08/29/19 07:52 Dose: 40 mg Documented by: Guaifenesin/Dextromethorphan (Robitussin Dm) 10 ml PO Q6H PRN PRN Reason: Cough Ceftriaxone Sodium 2 gm/ (Sodium Chloride) 50 mls @ 100 mls/hr IVPB Q24HR [facility] Last Admin: 08/29/19 07:51 Dose: 100 mls/hr Documented by: Insulin Aspart (Novolog) 0 unit SQ ACHS [facility]; Protocol Last Admin: 08/29/19 12:12 Dose: 6 unit Documented by: Insulin Aspart (Novolog) 6 unit SQ AC-TID [facility] Insulin Detemir (Levemir) 30 unit SQ HS [facility] Last Admin: 08/28/19 20:58 Dose: 30 unit Documented by: Naloxone HCl (Narcan) 0.2 mg IV Q2M PRN PRN Reason: Opioid Reversal Ondansetron HCl (Zofran) 4 mg IVP Q8HR PRN PRN Reason: Nausea And Vomiting Prednisone () 40 mg PO DAILY [facility] Last Admin: 08/29/19 07:52 Dose: 40 mg Documented by: Objective - Vital Signs Vital signs: Vital Signs Temp 97.6 F 08/29/19 11:00 Pulse 79 08/29/19 11:00 Resp 18 08/29/19 11:00 BP 126/83 08/29/19 11:00 Pulse Ox 91 L 08/29/19 11:00 Intake & Output 08/28/19 08/29/19 08/29/19 18:59 06:59 18:59 Intake Total 500 926 Output Total 1150 1800 Balance -1150 -1300 926 Weight 145.15 kg Intake: Intake, IV Titration 50 Amount cefTRIAXone 2 gm In 50 Sodium Chloride 0.9% 50 ml @ 100 mls/hr IVPB Q24HR [facility] Rx#:[id number] Oral 500 876 Output: Urine 1150 1800 Other: Voiding Method Urinal Urinal # Voids 1 2 - Exam PHYSICAL EXAMINATION: GENERAL: The patient is alert and oriented x3, not in any acute distress. Well developed, well nourished. HEENT: Pupils are round and equally reacting to light. EOMI. No scleral icterus. No conjunctival pallor. Normocephalic, atraumatic. No pharyngeal erythema. No thyromegaly. CARDIOVASCULAR: S1 and S2 present. No murmurs, rubs, or gallops. PULMONARY: Chest is clear to auscultation, no wheezes. scattered rhonchi in all lung nam ABDOMEN: Soft, nontender, nondistended, normoactive bowel sounds. No palpable organomegaly. MUSCULOSKELETAL: No joint swelling or deformity. EXTREMITIES: No cyanosis, clubbing, or pedal edema. NEUROLOGICAL: Gross neurological examination did not reveal any focal deficits. - Labs CBC & Chem 7: 08/29/19 07:42 08/29/19 07:42 Labs: Abnormal Lab Results - Last 24 Hours (Table) 08/27/19 08/27/19 08/28/19 Range/Units 06:08 06:08 16:34 WBC (3.8-10.6) k/uL Chloride (98-107) mmol/L Carbon Dioxide (22-30) mmol/L BUN (9-20) mg/dL Creatinine (0.66-1.25) mg/dL Glucose (74-99) mg/dL POC Glucose (mg/dL) 367 H (75-99) mg/dL Hemoglobin A1c 7.9 H (4.0-6.0) % Ferritin 1213.0 H (22.0-322.0) ng/mL Creatine Kinase (55-170) U/L C-Reactive Protein (<10.0) mg/L 08/28/19 08/29/19 08/29/19 Range/Units 20:41 07:25 07:42 WBC (3.8-10.6) k/uL Chloride 97 L (98-107) mmol/L Carbon Dioxide 33 H (22-30) mmol/L BUN 25 H (9-20) mg/dL Creatinine 0.64 L (0.66-1.25) mg/dL Glucose 297 H (74-99) mg/dL POC Glucose (mg/dL) 344 H 288 H (75-99) mg/dL Hemoglobin A1c (4.0-6.0) % Ferritin (22.0-322.0) ng/mL Creatine Kinase 38 L (55-170) U/L C-Reactive Protein 11.2 H (<10.0) mg/L 08/29/19 08/29/19 Range/Units 07:42 12:07 WBC 11.1 H (3.8-10.6) k/uL Chloride (98-107) mmol/L Carbon Dioxide (22-30) mmol/L BUN (9-20) mg/dL Creatinine (0.66-1.25) mg/dL Glucose (74-99) mg/dL POC Glucose (mg/dL) 335 H (75-99) mg/dL Hemoglobin A1c (4.0-6.0) % Ferritin (22.0-322.0) ng/mL Creatine Kinase (55-170) U/L C-Reactive Protein (<10.0) mg/L Microbiology - Last 24 Hours (Table) 08/23/19 06:54 Blood Culture - Final Blood No Growth after 144 hours Assessment and Plan Assessment: ASSESSMENT Acute hypoxic respiratory failure secondary to COVID 19 infection Type 2 diabetes mellitus poorly controlled Hypovolemic hyponatremia Hypertension Morbid obesity with BMI of 41 Hyperlipidemia History of aortic aneurysm GERD PLAN: Patient's respiratory status has been stable and he is saturating around 90s on 3 L of oxygen via nasal cannula. To be continued on steroids and anticoagulation with Lovenox. He is also getting ceftriaxone . Patient's blood sugars have been running high around 300s to 400s. Continue with 30 units of Lantus at night. We'll start him on 6 units of 3 times a day before meals of NovoLog. Continue with the rest of his current medication regimen. Further recommendations to follow depending on the progress of the patient.
[2019-08-29 17:10] LABS: Glucose,Whole Blood 291 mg/dL (75-99)
--- NOTE | 2019-08-29 17:43 | PN ---
PROGRESS NOTE DATE OF SERVICE: 08/29/2019 REASON FOR FOLLOWUP: Acute COVID-19 pneumonia. INTERVAL HISTORY: The patient is currently afebrile. He seems to be breathing comfortably. Denies having any chest pain. Cough has decreased. No nausea, vomiting, abdominal pain, diarrhea reported. PHYSICAL EXAMINATION: Blood pressure is 126/83 with a pulse of 79. Temperature 97.6, 91% on 3 L nasal cannula. General description is a middle-aged male lying in bed in no distress. Respiratory system: Unlabored breathing. Clear to auscultation anteriorly. Heart S1, S2. Regular rate and rhythm. ABDOMEN: Soft, no tenderness. LABS: Hemoglobin is 14.8, white count 11.9, BUN 25, creatinine 0.64. DIAGNOSTIC IMPRESSION AND PLAN: Patient with acute COVID-19 pneumonia for which the patient completed his Plaquenil therapy, currently on prednisone. Lovenox to continue along with respiratory support, incentive spirometry and deep breathing exercises and continue supportive care. X-ray did not show any worsening, rather some improvement. MMODL / IJN: [id number] /
[2019-08-29 20:44] LABS: Glucose,Whole Blood 333 mg/dL (75-99)
[2019-08-29] MEDS: INSULIN DETEMIR (LEVEMIR) 100 UNIT/ML SYR SQ SCH (21:03)
[2019-08-30 07:06] LABS: Glucose,Whole Blood 245 mg/dL (75-99)
[2019-08-30] MEDS: INSULIN ASPART (NovoLOG) 100 UNIT/ML VIAL SQ SCH ×7 (07:15→20:42)
[2019-08-30] MEDS: predniSONE 20 MG TAB PO SCH (07:16)
[2019-08-30] MEDS: ENOXAPARIN 40 MG/0.4 ML SYRINGE SQ SCH ×2 (07:16→20:42)
[2019-08-30 07:53] LABS: Basophils % (A) 0 %; Eosinophils # (A) 0.1 k/uL (0-0.7); Eosinophils % (A) 1 %; HCT 46.3 % (39.0-53.0); HGB 14.7 gm/dL (13.0-17.5); Lymphocytes # (A) 2.2 k/uL (1.0-4.8); Lymphocytes % (A) 22 %; MCH 26.9 pg (25.0-35.0); MCHC 31.8 g/dL (31.0-37.0); MCV 84.6 fL (80.0-100.0); Mean Platelet Volume 8.9; Monocytes # (A) 0.7 k/uL (0-1.0); Monocytes % (A) 6 %; Neutrophils # (A) 7.1 k/uL (1.3-7.7); Neutrophils % (A) 69 %; Platelet Count 248 k/uL (150-450); RBC 5.47 m/uL (4.30-5.90); RDW 12.6 % (11.5-15.5); WBC 10.3 k/uL (3.8-10.6)
[2019-08-30 08:14] LABS: African American GFR (CKD) >90 (>60 ml/min/1.73 sqM); Anion Gap 5 mmol/L; Blood Urea Nitrogen 22 mg/dL (9-20); Calcium 8.8 mg/dL (8.4-10.2); Carbon Dioxide 38 mmol/L (22-30); Chloride 95 mmol/L (98-107); Creatine Kinase 33 U/L (55-170); Glucose 277 mg/dL (74-99); LDH 481 U/L (313-618); Non-African American GFR(CKD) >90 (>60 ml/min/1.73 sqM); Potassium 4.6 mmol/L (3.5-5.1); Sodium 138 mmol/L (137-145)
[2019-08-30] MEDS: ALBUTEROL HFA INHALER INHALATION PRN ×2 (08:52→12:05)
--- NOTE | 2019-08-30 11:37 | P.PN ---
Subjective Progress Note Date: 08/30/19 Principal diagnosis: Acute hypoxic respiratory failure secondary to acute CoVID 19 pneumonitis 48-year-old male from [facility], with previous medical history of hypertension, hyperlipidemia, diabetes mellitus type 2, history of aortic aneurysm, GERD/reflux, who was brought in from [facility] on 08/23/2019 after complaints of not feeling well for 2 weeks with symptoms of fever, cough, shortness of breath and chest pain. Patient was also complaining of vomiting for 2 days prior, diaphoresis. Patient does not speak very much Pry[place], and certified flight radio operator services were used while interviewing the patient. Also chart was reviewed and history was also obtained from the chart. Chest x-ray showed patchy bilateral airspace disease, borderline cardiomegaly and small bilateral pleural effusions could not be excluded. On presentation his fever was 100.3F. Pulse ox was 91% on room air, patient was placed on supplemental oxygen he is currently on 4 L per nasal cannula with a pulse ox of 94%, he is tachypneic, and appears to be short of breath at rest. Lab work showed a white blood cell count 5.8, hemoglobin of 14.0, lymphopenia with the lymphocyte count of 0.8, INR is 1.2, d-dimer was 0.34, serum sodium was 133, the rest of electrolytes and renal profile were within normal limits, serum glucose was 139, plasma lactic acid was 1.2, ferritin was 1114, LDH was 748, troponin was 0.013, CRP was 79.8, pro calcitonin was 0.24, coronavirus PCR was positive, patient was started on Plaquenil, oral prednisone, he was given gentle IV hydration with a total of 1 L and IV fluid bolus and right now he has maintenance IVs infusing at a rate of 100 ML per hour. The patient is seen today 08/28/2019 in follow-up on the regular medical floor. He is currently awake and alert in no acute distress. Resting comfortably in bed. Maintaining good O2 saturations in the 90s on 3 L/m per nasal cannula. He's been afebrile. Hemodynamically stable. Blood cultures reveal no growth. Blood glucose 330. He is continued on ceftriaxone, prednisone. He has completed a course of Plaquenil. Remains on Lovenox. The patient is seen today 08/29/2019 in follow-up on the regular medical floor. Awake and alert in no acute distress. He is maintaining O2 saturations in the 90s on 3 L/m per nasal cannula. His been afebrile. Hemodynamically stable. Chest x-ray revealed improved aeration bilaterally. Blood culture reveals no growth. White count 11.1. Hemoglobin 14.8. D-dimer 0.26. Sodium 137. Potassium 4.2. Creatinine 0.64. LDH 473. C-reactive protein 11.2. He remains on ceftriaxone, Lovenox, prednisone. The patient is seen today 08/30/2019 in follow-up on the regular medical floor. He is currently resting comfortably in bed. Awake and alert in no acute distress. Breathing easier today compared to yesterday. Denies any chest pain or worsening shortness of breath. Maintaining good O2 saturations in the 90s on 3 L/m per nasal cannula. He's remained afebrile. Blood culture reveals no growth. White count 10.3. Hemoglobin 14.7. D-dimer 0.27. Creatinine 0.68. LDH 481. C-reactive protein 9.0. Glucose 277. He remains on ceftriaxone, Lovenox, prednisone. Objective - Vital Signs Vital signs: Vital Signs Temp 97.9 F 08/30/19 07:00 Pulse 70 08/30/19 07:00 Resp 18 08/30/19 07:00 BP 149/94 08/30/19 07:00 Pulse Ox 97 08/30/19 07:00 Intake & Output 08/29/19 08/30/19 08/30/19 18:59 06:59 18:59 Intake Total 1758 1406 Output Total 600 650 Balance 1158 -650 1406 Intake: Intake, IV Titration 50 50 Amount cefTRIAXone 2 gm In 50 50 Sodium Chloride 0.9% 50 ml @ 100 mls/hr IVPB Q24HR [facility] Rx#:[id number] Oral 1708 1356 Output: Urine 600 650 Other: Voiding Method Urinal Toilet Toilet Urinal Urinal # Voids 2 1 2 # Bowel Movements 1 1 - Exam GENERAL EXAM: Alert, pleasant, 48-year-old male patient, currently on 3 L/m per nasal cannula maintaining O2 saturations in the 90s, comfortable in no apparent distress. HEAD: Normocephalic/atraumatic. EYES: Normal reaction of pupils, equal size. Conjunctiva pink, sclera white. NOSE: Clear with pink turbinates. THROAT: No erythema or exudates. NECK: No masses, no JVD, no thyroid enlargement, no adenopathy. CHEST: No chest wall deformity. Symmetrical expansion. LUNGS: Equal air entry with bilateral scattered rhonchi. CVS: Regular rate and rhythm, normal S1 and S2, no gallops, no murmurs, no rubs ABDOMEN: Soft, nontender. No hepatosplenomegaly, normal bowel sounds, no guarding or rigidity. EXTREMITIES: No clubbing, no edema, no cyanosis, 2+ pulses and upper and lower extremities. MUSCULOSKELETAL: Muscle strength and tone normal. SPINE: No scoliosis or deformity SKIN: No rashes CENTRAL NERVOUS SYSTEM: No focal deficits, tone is normal in all 4 extremities. PSYCHIATRIC: Alert and oriented -3. Appropriate affect. Intact judgment and insight. - Labs CBC & Chem 7: 08/30/19 07:01 08/30/19 06:59 Labs: Abnormal Lab Results - Last 24 Hours (Table) 08/29/19 08/29/19 08/29/19 Range/Units 12:07 17:09 20:42 Chloride (98-107) mmol/L Carbon Dioxide (22-30) mmol/L BUN (9-20) mg/dL Glucose (74-99) mg/dL POC Glucose (mg/dL) 335 H 291 H 333 H (75-99) mg/dL Creatine Kinase (55-170) U/L 08/30/19 08/30/19 Range/Units 06:59 07:04 Chloride 95 L (98-107) mmol/L Carbon Dioxide 38 H (22-30) mmol/L BUN 22 H (9-20) mg/dL Glucose 277 H (74-99) mg/dL POC Glucose (mg/dL) 245 H (75-99) mg/dL Creatine Kinase 33 L (55-170) U/L Microbiology - Last 24 Hours (Table) 08/23/19 06:54 Blood Culture - Final Blood No Growth after 144 hours Assessment and Plan Assessment: #1. Acute hypoxic respiratory failure secondary to acute COVID-19 pneumonitis #2. Weakness, shortness of breath, nausea, vomiting, fever related to the above #3. Elevated ferritin, LDH and CRP related to acute COVID 19 infection #4. Bilateral infiltrates related to acute COVID 19 pneumonitis #5. Hypertension #6. Hyperlipidemia #7. History of aortic aneurysm #8. GERD/reflux #9. Diabetes mellitus type 2 Plan: The patient was seen and evaluated by Dr. Do Chest x-ray and labs reviewed Continue the current treatment plan Titrate down the FiO2 as tolerated Increase his activity as tolerated We will continue to follow and make further recommendations based on his clinical status I, the cosigning physician, performed a history & physical examination of the patient. Lungs sounds with few scattered rhonchi. Maintaining good O2 saturations in the 90s on 3 L/m per nasal cannula. I discussed the assessment and plan of care with my nurse practitioner, Abby Barone. I attest to the above note as dictated by her.
[2019-08-30 11:52] LABS: Glucose,Whole Blood 344 mg/dL (75-99)
--- NOTE | 2019-08-30 15:02 | P.PN ---
Subjective Progress Note Date: 08/30/19 Principal diagnosis: COVID- 19 infection Mr. Esparza is a 48-year-old male, brought in from [facility], who speaks only [place], with history of diabetes mellitus brought into the hospital with a chief complaints of cough and chest pain for 2 weeks. In the emergency department patient was tested for covid 19 and admitted for further management. On 08/29/2019- patient is comfortably lying in bed appears to be in no acute distress. Patient does not speak [place]ian but he can understand. He denies having any complaints other than that his breathing is still difficult. He still is feeling tired and fatigued and has generalized weakness. On reviewing his vitals he is saturating in 90s on 3 L of oxygen via nasal cannula. Blood pressure is 126 biapically, temperature of 97.6, heart rate of 79 and respiratory of 18. On reviewing the patient's labs his white count is 11.1 trending up. Sodium 137, potassium 4.2, we went to 25, creatinine 0.64 and d- dimer of 0.06. On 08/30/2019- patient is sleeping comfortably and snoring in bed. As per discussion with the nursing staff patient's blood sugars have been running on the higher side as the patient has been snacking heavily in between his meals. Patient states that his appetite improved and he is hungry and so is eating a lot. She states that his difficulty in breathing is improving. Patient denies having any headaches or neck pain. Denies having any chest pain or palpitations. No bowel pain nausea vomiting or diarrhea. No dysuria or hematuria. No swelling of his lower extremities or pain in his calves. On reviewing his vitals patient is saturating at 95% on 3 L of oxygen slightly afebrile for the past 24 hours. Reviewing his labs white count of 10.3 hemoglobin stable around 14.7 d-dimer at 0.27, LDH 481, CRP 9. Active Medications Acetaminophen (Tylenol Tab) 650 mg PO Q6HR PRN PRN Reason: Mild Pain or Fever > 100.5 Last Admin: 08/28/19 05:31 Dose: 650 mg Documented by: Albuterol Sulfate (Ventolin Hfa Inhaler) 2 puff INHALATION RT-QID PRN PRN Reason: Shortness Of Breath Or Wheezing Last Admin: 08/30/19 12:05 Dose: 2 puff Documented by: Enoxaparin Sodium (Lovenox) 40 mg SQ BID [facility] Last Admin: 08/30/19 07:16 Dose: 40 mg Documented by: Guaifenesin/Dextromethorphan (Robitussin Dm) 10 ml PO Q6H PRN PRN Reason: Cough Ceftriaxone Sodium 2 gm/ (Sodium Chloride) 50 mls @ 100 mls/hr IVPB Q24HR [facility] Last Admin: 08/30/19 07:15 Dose: 100 mls/hr Documented by: Insulin Aspart (Novolog) 0 unit SQ ACHS [facility]; Protocol Last Admin: 08/30/19 12:13 Dose: 6 unit Documented by: Insulin Aspart (Novolog) 12 unit SQ AC-TID [facility] Insulin Detemir (Levemir) 30 unit SQ HS [facility] Last Admin: 08/29/19 21:03 Dose: 30 unit Documented by: Naloxone HCl (Narcan) 0.2 mg IV Q2M PRN PRN Reason: Opioid Reversal Ondansetron HCl (Zofran) 4 mg IVP Q8HR PRN PRN Reason: Nausea And Vomiting Prednisone () 40 mg PO DAILY [facility] Last Admin: 08/30/19 07:16 Dose: 40 mg Documented by: Objective - Vital Signs Vital signs: Vital Signs Temp 97.9 F 08/30/19 07:00 Pulse 70 08/30/19 07:00 Resp 18 08/30/19 07:00 BP 149/94 08/30/19 07:00 Pulse Ox 97 08/30/19 07:00 Intake & Output 08/29/19 08/30/19 08/30/19 18:59 06:59 18:59 Intake Total 1758 1406 Output Total 600 650 Balance 1158 -650 1406 Intake: Intake, IV Titration 50 50 Amount cefTRIAXone 2 gm In 50 50 Sodium Chloride 0.9% 50 ml @ 100 mls/hr IVPB Q24HR [facility] Rx#:[id number] Oral 1708 1356 Output: Urine 600 650 Other: Voiding Method Urinal Toilet Toilet Urinal Urinal # Voids 2 1 2 # Bowel Movements 1 1 - Exam PHYSICAL EXAMINATION: GENERAL: The patient is alert and oriented x3, not in any acute distress. Obese. HEENT: Pupils are round and equally reacting to light. No pallor. No icterus. CARDIOVASCULAR: S1 and S2 present. No murmurs, rubs, or gallops. PULMONARY: Chest is clear to auscultation, no wheezes. scattered rhonchi in all lung nam ABDOMEN: Soft, nontender, nondistended, normoactive bowel sounds. No palpable organomegaly. MUSCULOSKELETAL: No joint swelling or deformity. EXTREMITIES: No cyanosis, clubbing, or pedal edema. NEUROLOGICAL: Gross neurological examination did not reveal any focal deficits. - Labs CBC & Chem 7: 08/30/19 07:01 08/30/19 06:59 Labs: Abnormal Lab Results - Last 24 Hours (Table) 08/29/19 08/29/19 08/30/19 Range/Units 17:09 20:42 06:59 Chloride 95 L (98-107) mmol/L Carbon Dioxide 38 H (22-30) mmol/L BUN 22 H (9-20) mg/dL Glucose 277 H (74-99) mg/dL POC Glucose (mg/dL) 291 H 333 H (75-99) mg/dL Creatine Kinase 33 L (55-170) U/L 08/30/19 08/30/19 Range/Units 07:04 11:50 Chloride (98-107) mmol/L Carbon Dioxide (22-30) mmol/L BUN (9-20) mg/dL Glucose (74-99) mg/dL POC Glucose (mg/dL) 245 H 344 H (75-99) mg/dL Creatine Kinase (55-170) U/L Assessment and Plan Assessment: ASSESSMENT Acute hypoxic respiratory failure secondary to COVID 19 infection Type 2 diabetes mellitus poorly controlled Hypovolemic hyponatremia Hypertension Morbid obesity with BMI of 41 Hyperlipidemia History of aortic aneurysm GERD PLAN: Patient's respiratory status has been stable and he is saturating around 90s on 3 L of oxygen via nasal cannula. To be continued on steroids and anticoagulation with Lovenox. He is also getting ceftriaxone . Patient's blood sugars have been running high around 300s to 400s. Continue with 30 units of Lantus at night. We will increase his dose of 6 units of 3 times a day before meals NovoLog to 12 units of NovoLog 3 times a day before meals. Continue with the rest of his current medication regimen. Further recommendations to follow depending on the progress of the patient.
[2019-08-30 17:03] LABS: Glucose,Whole Blood 341 mg/dL (75-99)
[2019-08-30 20:33] LABS: Glucose,Whole Blood 236 mg/dL (75-99)
[2019-08-30] MEDS: INSULIN DETEMIR (LEVEMIR) 100 UNIT/ML SYR SQ SCH (20:42)
--- NOTE | 2019-08-31 00:29 | PN ---
PROGRESS NOTE DATE OF SERVICE: 08/30/2019 REASON FOR FOLLOWUP: Acute COVID-19 pneumonia. INTERVAL HISTORY: The patient is currently afebrile. Patient has been breathing comfortably. Coughing less. No chest pain. No nausea or vomiting. No abdominal pain or diarrhea. PHYSICAL EXAMINATION: Blood pressure is 146/93 with a pulse of 85, temperature 97.4. He is 96% on 2 L nasal cannula. General description is a middle-aged male lying in bed in no distress. RESPIRATORY SYSTEM: Unlabored breathing, clear to auscultation anteriorly. HEART: S1, S2. Regular rate and rhythm. ABDOMEN: Soft, no tenderness. LABS: Hemoglobin is 14.7, white count 10.3. has resolved. Creatinine 0.68. DIAGNOSTIC IMPRESSION AND PLAN: Patient with acute COVID-19 pneumonia underlying pneumonia has been adequately treated. The patient's chest x-ray done yesterday shows overall improvement. There will be no need for antibiotic on discharge. Monitor clinical course closely. MMODL / IJN: [id number] /
[2019-08-31 02:40] LABS: Glucose,Whole Blood 92 mg/dL (75-99)
[2019-08-31 06:48] LABS: Glucose,Whole Blood 162 mg/dL (75-99)
[2019-08-31] MEDS: INSULIN ASPART (NovoLOG) 100 UNIT/ML VIAL SQ SCH ×7 (07:07→20:28)
[2019-08-31 07:36] LABS: C Reactive Protein 7.3 mg/L (<10.0)
[2019-08-31] MEDS: ENOXAPARIN 40 MG/0.4 ML SYRINGE SQ SCH ×2 (07:46→20:28)
[2019-08-31] MEDS: predniSONE 20 MG TAB PO SCH (07:46)
[2019-08-31] MEDS: ALBUTEROL HFA INHALER INHALATION PRN ×4 (09:05→20:19)
--- NOTE | 2019-08-31 11:28 | P.PN ---
Subjective Progress Note Date: 08/31/19 Principal diagnosis: Acute hypoxic respiratory failure secondary to acute CoVID 19 pneumonitis 48-year-old male from [facility], with previous medical history of hypertension, hyperlipidemia, diabetes mellitus type 2, history of aortic aneurysm, GERD/reflux, who was brought in from [facility] on 08/23/2019 after complaints of not feeling well for 2 weeks with symptoms of fever, cough, shortness of breath and chest pain. Patient was also complaining of vomiting for 2 days prior, diaphoresis. Patient does not speak very much [place], and certified registration clerk services were used while interviewing the patient. Also chart was reviewed and history was also obtained from the chart. Chest x-ray showed patchy bilateral airspace disease, borderline cardiomegaly and small bilateral pleural effusions could not be excluded. On presentation his fever was 100.3F. Pulse ox was 91% on room air, patient was placed on supplemental oxygen he is currently on 4 L per nasal cannula with a pulse ox of 94%, he is tachypneic, and appears to be short of breath at rest. Lab work showed a white blood cell count 5.8, hemoglobin of 14.0, lymphopenia with the lymphocyte count of 0.8, INR is 1.2, d-dimer was 0.34, serum sodium was 133, the rest of electrolytes and renal profile were within normal limits, serum glucose was 139, plasma lactic acid was 1.2, ferritin was 1114, LDH was 748, troponin was 0.013, CRP was 79.8, pro calcitonin was 0.24, coronavirus PCR was positive, patient was started on Plaquenil, oral prednisone, he was given gentle IV hydration with a total of 1 L and IV fluid bolus and right now he has maintenance IVs infusing at a rate of 100 ML per hour. The patient is seen today 08/28/2019 in follow-up on the regular medical floor. He is currently awake and alert in no acute distress. Resting comfortably in bed. Maintaining good O2 saturations in the 90s on 3 L/m per nasal cannula. He's been afebrile. Hemodynamically stable. Blood cultures reveal no growth. Blood glucose 330. He is continued on ceftriaxone, prednisone. He has completed a course of Plaquenil. Remains on Lovenox. The patient is seen today 08/29/2019 in follow-up on the regular medical floor. Awake and alert in no acute distress. He is maintaining O2 saturations in the 90s on 3 L/m per nasal cannula. His been afebrile. Hemodynamically stable. Chest x-ray revealed improved aeration bilaterally. Blood culture reveals no growth. White count 11.1. Hemoglobin 14.8. D-dimer 0.26. Sodium 137. Potassium 4.2. Creatinine 0.64. LDH 473. C-reactive protein 11.2. He remains on ceftriaxone, Lovenox, prednisone. The patient is seen today 08/30/2019 in follow-up on the regular medical floor. He is currently resting comfortably in bed. Awake and alert in no acute distress. Breathing easier today compared to yesterday. Denies any chest pain or worsening shortness of breath. Maintaining good O2 saturations in the 90s on 3 L/m per nasal cannula. He's remained afebrile. Blood culture reveals no growth. White count 10.3. Hemoglobin 14.7. D-dimer 0.27. Creatinine 0.68. LDH 481. C-reactive protein 9.0. Glucose 277. He remains on ceftriaxone, Lovenox, prednisone. The patient is seen today 08/31/2019 in follow-up on the regular medical floor. He's been up ambulating in his room. Awake and alert in no acute distress. He is maintaining good O2 saturations in the mid 90s on room air. He's been afebrile. Hemodynamically stable. D-dimer 0.20. Blood glucose 162. LDH 502. Creatinine kinase 38. C-reactive protein 7.3. He remains on prednisone, Lovenox, ceftriaxone. Objective - Vital Signs Vital signs: Vital Signs Temp 97.7 F 08/31/19 11:00 Pulse 96 08/31/19 11:00 Resp 16 08/31/19 11:00 BP 121/80 08/31/19 11:00 Pulse Ox 95 08/31/19 11:00 Intake & Output 08/30/19 08/31/19 08/31/19 18:59 06:59 18:59 Intake Total 1938 1406 Output Total 500 900 Balance 1438 -900 1406 Intake: Intake, IV Titration 50 50 Amount cefTRIAXone 2 gm In 50 50 Sodium Chloride 0.9% 50 ml @ 100 mls/hr IVPB Q24HR [facility] Rx#:[id number] Oral [id number] Output: Urine 500 900 Other: Voiding Method Toilet Toilet Toilet Urinal Urinal Urinal # Voids 2 1 2 # Bowel Movements 1 - Exam GENERAL EXAM: Alert, pleasant, 48-year-old male patient, currently on room air maintaining O2 saturations in the 90s, comfortable in no apparent distress. HEAD: Normocephalic/atraumatic. EYES: Normal reaction of pupils, equal size. Conjunctiva pink, sclera white. NOSE: Clear with pink turbinates. THROAT: No erythema or exudates. NECK: No masses, no JVD, no thyroid enlargement, no adenopathy. CHEST: No chest wall deformity. Symmetrical expansion. LUNGS: Equal air entry with bilateral scattered rhonchi. CVS: Regular rate and rhythm, normal S1 and S2, no gallops, no murmurs, no rubs ABDOMEN: Soft, nontender. No hepatosplenomegaly, normal bowel sounds, no guarding or rigidity. EXTREMITIES: No clubbing, no edema, no cyanosis, 2+ pulses and upper and lower extremities. MUSCULOSKELETAL: Muscle strength and tone normal. SPINE: No scoliosis or deformity SKIN: No rashes CENTRAL NERVOUS SYSTEM: No focal deficits, tone is normal in all 4 extremities. PSYCHIATRIC: Alert and oriented -3. Appropriate affect. Intact judgment and insight. - Labs CBC & Chem 7: 08/30/19 07:01 08/30/19 06:59 Labs: Abnormal Lab Results - Last 24 Hours (Table) 08/30/19 08/30/19 08/30/19 Range/Units 11:50 17:02 20:31 POC Glucose (mg/dL) 344 H 341 H 236 H (75-99) mg/dL Creatine Kinase (55-170) U/L 08/31/19 08/31/19 Range/Units 06:47 07:01 POC Glucose (mg/dL) 162 H (75-99) mg/dL Creatine Kinase 38 L (55-170) U/L Assessment and Plan Assessment: #1. Acute hypoxic respiratory failure secondary to acute COVID-19 pneumonitis #2. Weakness, shortness of breath, nausea, vomiting, fever related to the above #3. Elevated ferritin, LDH and CRP related to acute COVID 19 infection #4. Bilateral infiltrates related to acute COVID 19 pneumonitis #5. Hypertension #6. Hyperlipidemia #7. History of aortic aneurysm #8. GERD/reflux #9. Diabetes mellitus type 2 Plan: The patient was seen and evaluated by Dr. Carmona The patient is stable from the pulmonary standpoint Currently on room air Cleared for discharge I, the cosigning physician, performed a history & physical examination of the patient. Lungs sounds with few scattered rhonchi. Maintaining good O2 saturations in the 90s on room air. I discussed the assessment and plan of care with my nurse practitioner, Abby Barone. I attest to the above note as dictated by her.
[2019-08-31 11:44] LABS: Glucose,Whole Blood 226 mg/dL (75-99)
--- NOTE | 2019-08-31 15:24 | P.PN ---
Subjective Progress Note Date: 08/31/19 Principal diagnosis: COVID- 19 infection Mr. Esparza is a 48-year-old male, brought in from [facility], who speaks only [place]ian, with history of diabetes mellitus brought into the hospital with a chief complaints of cough and chest pain for 2 weeks. In the emergency department patient was tested for covid 19 and admitted for further management. On 08/29/2019- patient is comfortably lying in bed appears to be in no acute distress. Patient does not speak German but he can understand. He denies having any complaints other than that his breathing is still difficult. He still is feeling tired and fatigued and has generalized weakness. On reviewing his vitals he is saturating in 90s on 3 L of oxygen via nasal cannula. Blood pressure is 126 biapically, temperature of 97.6, heart rate of 79 and respiratory of 18. On reviewing the patient's labs his white count is 11.1 trending up. Sodium 137, potassium 4.2, we went to 25, creatinine 0.64 and d- dimer of 0.06. On 08/30/2019- patient is sleeping comfortably and snoring in bed. As per discussion with the nursing staff patient's blood sugars have been running on the higher side as the patient has been snacking heavily in between his meals. Patient states that his appetite improved and he is hungry and so is eating a lot. She states that his difficulty in breathing is improving. Patient denies having any headaches or neck pain. Denies having any chest pain or palpitations. No bowel pain nausea vomiting or diarrhea. No dysuria or hematuria. No swelling of his lower extremities or pain in his calves. On reviewing his vitals patient is saturating at 95% on 3 L of oxygen slightly afebrile for the past 24 hours. Reviewing his labs white count of 10.3 hemoglobin stable around 14.7 d-dimer at 0.27, LDH 481, CRP 9. On 08/31/2019- patient is lying comfortably in bed appears to be no acute distress. She states that his difficulty in breathing is improving. Denies having any cough. His blood sugars and they're much better control. On review of systems patient denies having any fevers chills or rigors. No chest pain or palpitations. No abdominal pain, nausea vomiting or diarrhea. No dysuria or hematuria. On reviewing the various patient's temperature 97.4, heart rate around 90s, blood pressure 108 present given he did saturating at 92% on room air. Patient's labs d-dimer 0.20, LDH 502, C-reactive protein 7.3. Active Medications Acetaminophen (Tylenol Tab) 650 mg PO Q6HR PRN PRN Reason: Mild Pain or Fever > 100.5 Last Admin: 08/28/19 05:31 Dose: 650 mg Documented by: Albuterol Sulfate (Ventolin Hfa Inhaler) 2 puff INHALATION RT-QID PRN PRN Reason: Shortness Of Breath Or Wheezing Last Admin: 08/31/19 12:08 Dose: 2 puff Documented by: Enoxaparin Sodium (Lovenox) 40 mg SQ BID [facility] Last Admin: 08/31/19 07:46 Dose: 40 mg Documented by: Guaifenesin/Dextromethorphan (Robitussin Dm) 10 ml PO Q6H PRN PRN Reason: Cough Insulin Aspart (Novolog) 0 unit SQ ACHS [facility]; Protocol Last Admin: 08/31/19 12:25 Dose: 3 unit Documented by: Insulin Aspart (Novolog) 12 unit SQ AC-TID [facility] Last Admin: 08/31/19 12:25 Dose: 12 unit Documented by: Insulin Detemir (Levemir) 30 unit SQ HS [facility] Last Admin: 08/30/19 20:42 Dose: 30 unit Documented by: Naloxone HCl (Narcan) 0.2 mg IV Q2M PRN PRN Reason: Opioid Reversal Ondansetron HCl (Zofran) 4 mg IVP Q8HR PRN PRN Reason: Nausea And Vomiting Prednisone () 40 mg PO DAILY [facility] Last Admin: 08/31/19 07:46 Dose: 40 mg Documented by: Objective - Vital Signs Vital signs: Vital Signs Temp 97.7 F 08/31/19 11:00 Pulse 96 08/31/19 11:00 Resp 16 08/31/19 11:00 BP 121/80 08/31/19 11:00 Pulse Ox 95 08/31/19 11:00 Intake & Output 08/30/19 08/31/19 08/31/19 18:59 06:59 18:59 Intake Total 1938 1706 Output Total 500 900 Balance 1438 -900 1706 Intake: Intake, IV Titration 50 50 Amount cefTRIAXone 2 gm In 50 50 Sodium Chloride 0.9% 50 ml @ 100 mls/hr IVPB Q24HR [facility] Rx#:[id number] Oral [id number] Output: Urine 500 900 Other: Voiding Method Toilet Toilet Toilet Urinal Urinal Urinal # Voids 2 1 2 # Bowel Movements 1 - Exam PHYSICAL EXAM; GENERAL: The patient is alert and oriented x3, not in any acute distress. Obese. HEENT: Pupils are round and equally reacting to light. No pallor. No icterus. CARDIOVASCULAR: S1 and S2 present. No murmurs, rubs, or gallops. PULMONARY: Chest is clear to auscultation, no wheezes. scattered rhonchi in all lung nam ABDOMEN: Soft, nontender, nondistended, normoactive bowel sounds. No palpable organomegaly. MUSCULOSKELETAL: No joint swelling or deformity. EXTREMITIES: No cyanosis, clubbing, or pedal edema. NEUROLOGICAL: Gross neurological examination did not reveal any focal deficits. - Labs CBC & Chem 7: 08/30/19 07:01 08/30/19 06:59 Labs: Abnormal Lab Results - Last 24 Hours (Table) 08/30/19 08/30/19 08/31/19 Range/Units 17:02 20:31 06:47 POC Glucose (mg/dL) 341 H 236 H 162 H (75-99) mg/dL Creatine Kinase (55-170) U/L 08/31/19 08/31/19 Range/Units 07:01 11:42 POC Glucose (mg/dL) 226 H (75-99) mg/dL Creatine Kinase 38 L (55-170) U/L Assessment and Plan Assessment: ASSESSMENT Acute hypoxic respiratory failure secondary to COVID 19 infection Type 2 diabetes mellitus poorly controlled Hypovolemic hyponatremia Hypertension Morbid obesity with BMI of 41 Hyperlipidemia History of aortic aneurysm GERD PLAN: Patient's respiratory status has been stable and he is saturating around 90s on 3 L of oxygen via nasal cannula. To be continued on steroids and anticoagulation with Lovenox. He is also getting ceftriaxone . Patient's blood sugars under much better control after changing the dose of NovoLog to 12 units 3 times a day before meals from 6 units 3 times a day before meals. Continue with the rest of his current medication regimen. Patient is [facility], will need to check with the facility if they need a repeat testing for COVID- 19 prior to discharge. Anticipate discharge in the next 24 hours.
--- NOTE | 2019-08-31 15:38 | PN ---
PROGRESS NOTE DATE OF SERVICE: 08/31/2019 REASON FOR FOLLOWUP: Acute COVID-19 pneumonia. INTERVAL HISTORY: The patient is currently afebrile. The patient is breathing comfortably on room air. Denies having any worsening chest pain or cough. No vomiting or any abdominal pain. PHYSICAL EXAMINATION: Blood pressure is 121/80 with a pulse of 93, temperature 97.7. He is 95% on room air. General description is a middle-aged male lying in bed in no distress. RESPIRATORY SYSTEM: Unlabored breathing. Clear to auscultation anteriorly. HEART: S1, S2. Regular rate and rhythm. ABDOMEN: Soft. No tenderness. LABS: D-dimer is 0.20. CRP normal at 7.3. LDH is normal. DIAGNOSTIC IMPRESSION AND PLAN: Patient with acute COVID-19 pneumonia that has been adequately treated. The patient has completed his treatment. No need for any Plaquenil on discharge or any antibiotics. Continue with supportive care. MMODL / IJN: [id number] /
[2019-08-31 16:40] LABS: Glucose,Whole Blood 376 mg/dL (75-99)
[2019-08-31 20:16] LABS: Glucose,Whole Blood 303 mg/dL (75-99)
[2019-08-31] MEDS: INSULIN DETEMIR (LEVEMIR) 100 UNIT/ML SYR SQ SCH (20:28)
[2019-09-01 02:13] LABS: Glucose,Whole Blood 119 mg/dL (75-99)
[2019-09-01 06:47] LABS: Glucose,Whole Blood 166 mg/dL (75-99)
[2019-09-01] MEDS: predniSONE 20 MG TAB PO SCH (07:08)
[2019-09-01] MEDS: ENOXAPARIN 40 MG/0.4 ML SYRINGE SQ SCH (07:08)
[2019-09-01] MEDS: INSULIN ASPART (NovoLOG) 100 UNIT/ML VIAL SQ SCH ×6 (07:08→17:49)
[2019-09-01 10:52] VITALS: TEMP 97.7
[2019-09-01] MEDS: ALBUTEROL HFA INHALER INHALATION PRN ×2 (11:03→15:27)
[2019-09-01 11:33] LABS: Glucose,Whole Blood 232 mg/dL (75-99)
--- NOTE | 2019-09-01 13:55 | P.PN ---
Subjective Progress Note Date: 09/01/19 Principal diagnosis: Acute hypoxic respiratory failure secondary to acute CoVID 19 pneumonitis 48-year-old male from [facility], with previous medical history of hypertension, hyperlipidemia, diabetes mellitus type 2, history of aortic aneurysm, GERD/reflux, who was brought in from [facility] on 08/23/2019 after complaints of not feeling well for 2 weeks with symptoms of fever, cough, shortness of breath and chest pain. Patient was also complaining of vomiting for 2 days prior, diaphoresis. Patient does not speak very much [place], and certified shale processing technician services were used while interviewing the patient. Also chart was reviewed and history was also obtained from the chart. Chest x-ray showed patchy bilateral airspace disease, borderline cardiomegaly and small bilateral pleural effusions could not be excluded. On presentation his fever was 100.3F. Pulse ox was 91% on room air, patient was placed on supplemental oxygen he is currently on 4 L per nasal cannula with a pulse ox of 94%, he is tachypneic, and appears to be short of breath at rest. Lab work showed a white blood cell count 5.8, hemoglobin of 14.0, lymphopenia with the lymphocyte count of 0.8, INR is 1.2, d-dimer was 0.34, serum sodium was 133, the rest of electrolytes and renal profile were within normal limits, serum glucose was 139, plasma lactic acid was 1.2, ferritin was 1114, LDH was 748, troponin was 0.013, CRP was 79.8, pro calcitonin was 0.24, coronavirus PCR was positive, patient was started on Plaquenil, oral prednisone, he was given gentle IV hydration with a total of 1 L and IV fluid bolus and right now he has maintenance IVs infusing at a rate of 100 ML per hour. The patient is seen today 08/28/2019 in follow-up on the regular medical floor. He is currently awake and alert in no acute distress. Resting comfortably in bed. Maintaining good O2 saturations in the 90s on 3 L/m per nasal cannula. He's been afebrile. Hemodynamically stable. Blood cultures reveal no growth. Blood glucose 330. He is continued on ceftriaxone, prednisone. He has completed a course of Plaquenil. Remains on Lovenox. The patient is seen today 08/29/2019 in follow-up on the regular medical floor. Awake and alert in no acute distress. He is maintaining O2 saturations in the 90s on 3 L/m per nasal cannula. His been afebrile. Hemodynamically stable. Chest x-ray revealed improved aeration bilaterally. Blood culture reveals no growth. White count 11.1. Hemoglobin 14.8. D-dimer 0.26. Sodium 137. Potassium 4.2. Creatinine 0.64. LDH 473. C-reactive protein 11.2. He remains on ceftriaxone, Lovenox, prednisone. The patient is seen today 08/30/2019 in follow-up on the regular medical floor. He is currently resting comfortably in bed. Awake and alert in no acute distress. Breathing easier today compared to yesterday. Denies any chest pain or worsening shortness of breath. Maintaining good O2 saturations in the 90s on 3 L/m per nasal cannula. He's remained afebrile. Blood culture reveals no growth. White count 10.3. Hemoglobin 14.7. D-dimer 0.27. Creatinine 0.68. LDH 481. C-reactive protein 9.0. Glucose 277. He remains on ceftriaxone, Lovenox, prednisone. The patient is seen today 08/31/2019 in follow-up on the regular medical floor. He's been up ambulating in his room. Awake and alert in no acute distress. He is maintaining good O2 saturations in the mid 90s on room air. He's been afebrile. Hemodynamically stable. D-dimer 0.20. Blood glucose 162. LDH 502. Creatinine kinase 38. C-reactive protein 7.3. He remains on prednisone, Lovenox, ceftriaxone. The patient is seen today 09/01/2019 in follow-up on the regular medical floor. He is currently resting comfortably in bed. Awake and alert in no acute distress. Maintaining O2 saturations in the 90s on room air. He's been afebrile. Hemodynamically stable. Blood glucose 166. Objective - Vital Signs Vital signs: Vital Signs Temp 97.7 F 09/01/19 10:51 Pulse 78 09/01/19 10:51 Resp 15 09/01/19 10:51 BP 146/85 09/01/19 10:51 Pulse Ox 94 L 09/01/19 10:51 Intake & Output 08/31/19 09/01/19 09/01/19 18:59 06:59 18:59 Intake Total 1941 1180 Output Total 300 900 Balance 1642 -900 1180 Intake: Intake, IV Titration 50 Amount cefTRIAXone 2 gm In 50 Sodium Chloride 0.9% 50 ml @ 100 mls/hr IVPB Q24HR [facility] Rx#:[id number] Oral 1892 1180 Output: Urine 300 900 Other: Voiding Method Toilet Toilet Toilet Urinal Urinal Urinal # Voids 2 2 2 - Exam GENERAL EXAM: Alert, pleasant, 48-year-old male patient, currently on room air maintaining O2 saturations in the 90s, comfortable in no apparent distress. HEAD: Normocephalic/atraumatic. EYES: Normal reaction of pupils, equal size. Conjunctiva pink, sclera white. NOSE: Clear with pink turbinates. THROAT: No erythema or exudates. NECK: No masses, no JVD, no thyroid enlargement, no adenopathy. CHEST: No chest wall deformity. Symmetrical expansion. LUNGS: Equal air entry with bilateral scattered rhonchi. CVS: Regular rate and rhythm, normal S1 and S2, no gallops, no murmurs, no rubs ABDOMEN: Soft, nontender. No hepatosplenomegaly, normal bowel sounds, no gua rding or rigidity. EXTREMITIES: No clubbing, no edema, no cyanosis, 2+ pulses and upper and lower extremities. MUSCULOSKELETAL: Muscle strength and tone normal. SPINE: No scoliosis or deformity SKIN: No rashes CENTRAL NERVOUS SYSTEM: No focal deficits, tone is normal in all 4 extremities. PSYCHIATRIC: Alert and oriented -3. Appropriate affect. Intact judgment and insight. - Labs CBC & Chem 7: 08/30/19 07:01 08/30/19 06:59 Labs: Abnormal Lab Results - Last 24 Hours (Table) 08/31/19 08/31/19 09/01/19 Range/Units 16:38 20:15 02:12 POC Glucose (mg/dL) 376 H 303 H 119 H (75-99) mg/dL 09/01/19 09/01/19 Range/Units 06:46 11:32 POC Glucose (mg/dL) 166 H 232 H (75-99) mg/dL Assessment and Plan Assessment: #1. Acute hypoxic respiratory failure secondary to acute COVID-19 pneumonitis #2. Weakness, shortness of breath, nausea, vomiting, fever related to the above #3. Elevated ferritin, LDH and CRP related to acute COVID 19 infection #4. Bilateral infiltrates related to acute COVID 19 pneumonitis #5. Hypertension #6. Hyperlipidemia #7. History of aortic aneurysm #8. GERD/reflux #9. Diabetes mellitus type 2 Plan: The patient was seen and evaluated by Dr. Carmona Remains stable from the pulmonary standpoint Currently on room air Complete prednisone taper Continue Lovenox Cleared for discharge I, the cosigning physician, performed a history & physical examination of the patient. Lungs sounds with few scattered rhonchi. Maintaining good O2 saturations in the 90s on room air. I discussed the assessment and plan of care with my nurse practitioner, Abby Barone. I attest to the above note as dictated by her.
--- NOTE | 2019-09-01 14:04 | PN ---
PROGRESS NOTE DATE OF SERVICE: 09/01/2019 REASON FOR FOLLOWUP: Acute COVID-19 pneumonia. INTERVAL HISTORY: The patient is currently afebrile, he is breathing comfortably on room air. No chest pain or cough. No abdominal pain and no new symptoms. PHYSICAL EXAMINATION: Blood pressure 142/85 with a pulse of 78, he is 97% on percent room air. General description is a middle-aged male, up in the bed in no distress. RESPIRATORY SYSTEM: Unlabored breathing, clear to auscultation anteriorly. HEART S1, S2. Regular rate and rhythm. ABDOMEN: Soft, no tenderness. LABS: No new labs have been obtained today. DIAGNOSTIC IMPRESSION AND PLAN: Patient with acute COVID-19 pneumonia that has been adequately treated. No need for any specific antibiotic for any treatment on discharge. Continue supportive care. MMODL / IJN: [id number] /
[2019-09-01 14:35] VITALS: BP 119/70; PULSE 90; RESP 14
--- NOTE | 2019-09-01 14:35 | CDI ---
Documentation Clarification Form Date: 09/01/2019 02:02:16 PM From: Shauna Ortiz RN CCDS Admit Date: 08/23/2019 08:24:00 AM Patient Name: Kyler Esparza Visit Number: [id number] Discharge Date: ATTENTION: The Clinical Documentation Specialists (CDI) and [facility] Coding Staff appreciate your assistance in clarifying documentation. Please respond to the clarification below the line at the bottom and electronically sign. The CDI & [facility] Coding staff will review the response and follow-up if needed. Please note: Queries are made part of the Legal Health Record. If you have any questions, please contact the author of this message via ITS. Dr. Cameron Main MD The diagnosis Sepsis was documented in the Internal medicine Progress notes 08/23 thru 08/26 but is not noted in subsequent documentation. History/Risk Factors: 48-year-old male presented to the ED with complaints of a cough for two weeks with shortness of breath and chest pain. Medical history of DM, HTN and Obesity Clinical Indicators: VSS 08/22: 120/82, 107, 100.3 F, 26, SpO2 91 % room air Labs 08/22: Wbc 5.8, Lymphocytes 0.8, Inr 1.2, Na 133, Glucose 146, Calcium 8.1, Ferritin 1114.5, LDH 748, CRP 79.8, Procalcitonin 0.24, Coronavirus Detected A CXR 08/22: Patchy, Bilateral airspace disease, can not exclude small effusions. CXR 08/24: Stable scattered airspace disease right greater than left. Blood Cultures 08/22: No growth Per the Internal Medicine Progress note 08/23 "Hypertension: Patient was on lisinopril at home holding of that medication to avoid any hypotension related to Sepsis." Treatment: 08/22 Tylenol po x1 then prn; 0.9Ns 1L bolus followed by 100cc/hr d/c 08/24, Ventolin Inhaler prn, Plaquenil po bid d/c 08/27, Lovenox Bid, 08/24 Rocephin Ivpb Q24Hrs d/c 08/30 Please clarify if the Sepsis was Present/active this admission POA Treated and resolved this admission POA Ruled out Other, please specify Clinically unable to determine (Last Query Form Revision: December 2018) Treated and resolved this admission POA MTDD
[2019-09-01 16:28] LABS: Glucose,Whole Blood 293 mg/dL (75-99)
--- NOTE | 2019-09-01 22:38 | P.DS ---
Providers Date of admission: 08/23/19 08:24 Expected date of discharge: 09/01/19 Attending physician: Raquel Thomas Consults: 08/23/19 15:02 Consult Physician Routine Consulting Provider: Luz Yanes Consult Reason/Comments: COVID 19 Do you want consulting provider notified?: Yes 08/24/19 10:11 Consult Physician Routine Consulting Provider: Bryan Do Consult Reason/Comments: COVID 19, Hypoxia Do you want consulting provider notified?: Yes Primary care physician: Stated None Hospital Course: COVID- 19 infection Mr. Esparza is a 48-year-old male, brought in from [facility], who speaks only Hebrew, with history of diabetes mellitus brought into the hospital with a chief complaints of cough and chest pain for 2 weeks. Patient had hyponatremia high-grade fevers increased LDH, normal d-dimer and mild lymphopenia. Patient is covid 19 positive During his hospital course, he completed a course of Hydroxychloroquine, Predniosne and Lovenox. He was on Ceftriaxone and complted the course. He required upto 6 lt of Oxygen intially and then gradually was weaned off Oxygen yesterday morning. He maintained his saturations above 90 % since then. The inflammatory markers trended down gradually. His Hba1c- 7.9 and his blood sugars have been running high during his stay , so started on Insulin along with Sliding scale. He was cleared by Pulmonary and ID for discharge. Vital Signs Temp 97.7 F 09/01/19 10:51 Pulse 78 09/01/19 10:51 Resp 15 09/01/19 10:51 BP 146/85 09/01/19 10:51 Pulse Ox 94 L 09/01/19 10:51 PHYSICAL EXAM GENERAL: The patient is alert and oriented x3, not in any acute distress. Obese. HEENT: Pupils are round and equally reacting to light. No pallor. No icterus. CARDIOVASCULAR: S1 and S2 present. No murmurs, rubs, or gallops. PULMONARY: Chest is clear to auscultation, no wheezes. Scattered rhonchi in all lung nam ABDOMEN: Soft, nontender, nondistended, normoactive bowel sounds. MUSCULOSKELETAL: No joint swelling or deformity. EXTREMITIES: No cyanosis, clubbing, or pedal edema. NEUROLOGICAL: Gross neurological examination did not reveal any focal deficits. DISCHARGE DIAGNOSIS Acute hypoxic respiratory failure secondary to COVID 19 infection Type 2 diabetes mellitus poorly controlled Hypovolemic hyponatremia Hypertension Morbid obesity with BMI of 41 Hyperlipidemia History of aortic aneurysm GERD PLAN: He is being discharged on Insulin as his sugars are running high and also that he will be sent on tapering dose of steroids. Anti coagulation for 2 weeks with Lovenox. [facility] is being [facility]. Advised isolation . More than 30 mins spent for the discharge of the patient. Patient Condition at Discharge: Stable Plan - Discharge Summary Discharge Rx Participant: No New Discharge Prescriptions: New predniSONE See Taper PO DIRECTED #30 tab Albuterol Inhaler [Ventolin Hfa Inhaler] 2 puff INHALATION RT-QID PRN #1 inhaler PRN Reason: Shortness Of Breath Or Wheezing Insulin Detemir (Levemir) [Levemir] 20 unit SQ HS #1 syr INSULIN ASPART (NovoLOG) [NovoLOG (formulary)] 0 unit SQ ACHS vial Enoxaparin [Lovenox] 40 mg SQ BID 14 Days #28 syringe Continue metFORMIN HCL 1,000 mg PO BID Omeprazole [PriLOSEC] 20 mg PO DAILY PRN PRN Reason: Heartburn Lisinopril [Zestril] 10 mg PO DAILY Insulin Regular [humuLIN R] See Protocol SQ ACHS Atorvastatin [Lipitor] 20 mg PO HS Aspirin EC [Ecotrin Low Dose] 81 mg PO DAILY glipiZIDE [Glucotrol] 5 mg PO DAILY Acetaminophen Tab [Tylenol] 975 mg PO BID PRN PRN Reason: Fever And/ Or Pain Ondansetron [Zofran] 4 mg PO BID PRN PRN Reason: Nausea And Vomiting Ensure 240 ml PO BID Discharge Medication List Acetaminophen Tab [Tylenol] 975 mg PO BID PRN 08/23/19 [History] Aspirin EC [Ecotrin Low Dose] 81 mg PO DAILY 08/23/19 [History] Atorvastatin [Lipitor] 20 mg PO HS 08/23/19 [History] Ensure 240 ml PO BID 08/23/19 [History] Insulin Regular [humuLIN R] See Protocol SQ ACHS 08/23/19 [History] Lisinopril [Zestril] 10 mg PO DAILY 08/23/19 [History] Omeprazole [PriLOSEC] 20 mg PO DAILY PRN 08/23/19 [History] Ondansetron [Zofran] 4 mg PO BID PRN 08/23/19 [History] glipiZIDE [Glucotrol] 5 mg PO DAILY 08/23/19 [History] metFORMIN HCL 1,000 mg PO BID 08/23/19 [History] Albuterol Inhaler [Ventolin Hfa Inhaler] 2 puff INHALATION RT-QID PRN #1 inhaler 09/01/19 [Rx] Enoxaparin [Lovenox] 40 mg SQ BID 14 Days #28 syringe 09/01/19 [Rx] INSULIN ASPART (NovoLOG) [NovoLOG (formulary)] 0 unit SQ ACHS vial 09/01/19 [Rx] Insulin Detemir (Levemir) [Levemir] 20 unit SQ HS #1 syr 09/01/19 [Rx] predniSONE See Taper PO DIRECTED #30 tab 09/01/19 [Rx] Follow up Appointment(s)/Referral(s): None,Stated [Primary Care Provider] - 1-2 days Patient Instructions/Handouts: Viral Pneumonia (DC), Diabetic Hyperglycemia (DC) Discharge Disposition: DC/TRANSFER COURT/LAW
== END 2019-09-01 18:12 | DRG 871 ==
LOC: EC 06:21 → 4SSUR 08:24
PROVIDERS: ADMIT Internal Medicine; ATTEND Internal Medicine
DX: A41.89 Other specified sepsis (principal); U07.1 COVID-19; J96.01 Acute respiratory failure with hypoxia; J12.89 Other viral pneumonia; Z68.41 Body mass index [BMI] 40.0-44.9, adult; E87.1 Hypo-osmolality and hyponatremia; Z65.3 Problems related to other legal circumstances; E11.65 Type 2 diabetes mellitus with hyperglycemia; D72.810 Lymphocytopenia; E66.01 Morbid (severe) obesity due to excess calories; E78.5 Hyperlipidemia, unspecified; E86.1 Hypovolemia; I10 Essential (primary) hypertension; I71.9 Aortic aneurysm of unspecified site, without rupture; K21.9 Gastro-esophageal reflux disease without esophagitis; Z79.4 Long term (current) use of insulin; Z79.82 Long term (current) use of aspirin; Z79.899 Other long term (current) drug therapy; K76.9 Liver disease, unspecified; F14.11 Cocaine abuse, in remission
CPT/HCPCS: 36415; 71045; 80048; 80053; 82550; 82728; 83036; 83605; 83615; 83735; 84145; 84484; 85025; 85027; 85379; 85610; 85730; 86140; 87040; 87635; 93005; 94640; 96360; 96361; 99285